=== PATIENT | female | born 1995 | race Caucasian/White ===

== ENCOUNTER 2017-02-27 19:12 | Emergency (ER) | payer BC, OTHER ==
[~2017-02-27] VITALS: Ht 157.5 cm; Wt 47.6 kg
[2017-02-27] MEDS ORDERED: NAPR500T4 (19:29)
[2017-02-27] MEDS ORDERED: NORG1TAB14 (19:29)
--- NOTE | 2017-02-27 19:53 | ED Lower Extremity ---
General Chief Complaint: Lower Extremity Stated Complaint: LEFT FOOT INJ Nursing Triage Note: Carried into ER by male slate picker. Reports doing cheerleading stunts at [place], [place] when her foot was rolled during a stunt. Pt states injured at 1745. Source: patient, family Exam Limitations: no limitations History of Present Illness Time seen by provider: 19:53 Initial Comments 21-year-old female patient presents to the emergency department with complaints of left foot/ankle pain after doing a cheerleading stunt. Reports taking 4 ibuprofen one hour prior to arrival. Patient denies hitting her head or loss of consciousness. Denies neck or back pain. Onset: this afternoon Pain/Injury Location: left foot, left ankle Method of Injury: sports injury, twisted Modifying Factors: Worse With Movement Allergies and Home Medications Allergies Coded Allergies: No Known Drug Allergies (Unverified , 02/27/17) Home Medications Naproxen 500 Mg Tablet, #42 (Reported) Norgestimate-Ethinyl Estradiol 1 Each Tablet, #84 (Reported) Constitutional: no symptoms reported Respiratory: no symptoms reported Cardiovascular: no symptoms reported Musculoskeletal: see HPI, joint pain, No joint swelling Skin: No change in color, No lumps Psychiatric/Neurological: Denies Headache, Denies Numbness, Denies Paresthesia , Denies Tingling, Denies Weakness All Other Systems Reviewed Negative Unless Noted: Yes (Negative excepted noted.) Past Kfrkuog-Shlzbw-Tyjanv Hx Patient Social History Alcohol Use: Denies Use Recreational Drug Use: No Smoking Status: Never a Smoker Recent Foreign Travel: No Contact w/Someone Who Travel: No Recent Infectious Disease Expo: No Recent Hopitalizations: No Seasonal Allergies Seasonal Allergies: No Surgeries HX Surgeries: Yes Respiratory Hx Respiratory Disorders: No Cardiovascular Hx Cardiac Disorders: No Neurological Hx Neurological Disorders: No Gastrointestinal Hx Gastrointestinal Disorders: No Musculoskeletal Hx Musculoskeletal Disorders: No Reviewed Nursing Assessment Reviewed/Agree w Nursing PMH: Yes Family Medical History Significant Family History: No Pertinent Family Hx Physical Exam Vital Signs Vital Sign - Last 12Hours 02/27/17 02/27/17 19:15 21:00 Temp 97.2 Pulse 86 Resp 20 B/P (MAP) 117/84 Pulse Ox 97 O2 Delivery Room Air Capillary Refill : General Appearance: WD/WN, no apparent distress Cardiovascular: normal peripheral pulses, regular rate, rhythm, no murmur Respiratory: lungs clear, normal breath sounds, no respiratory distress Legs: bilateral leg non-tender, bilateral leg normal inspection, bilateral leg normal range of motion, bilateral leg no evidence of injury Knees: bilateral knee non-tender, bilateral knee normal inspection, bilateral knee normal range of motion, bilateral knee no evidence of injury Ankles: right ankle non-tender, bilateral ankle normal inspection, right ankle normal range of motion, bilateral ankle no evidence of injury, left ankle bone tenderness (bilateral malleoli), left ankle limited range of motion, left ankle pain, left ankle soft tissue tenderness Feet: right foot non-tender, bilateral foot normal inspection, right foot normal range of motion, bilateral foot no evidence of injury, left foot bone tenderness (generalized foot), left foot limited range of motion, left foot pain , left foot soft tissue tenderness (generalized tenderness) Neurologic/Tendon: normal sensation, normal motor functions, normal tendon functions, responds to pain, no evidence tendon injury Neurologic/Psychiatric: no motor/sensory deficits, alert, normal mood/affect, oriented x 3 Skin: normal color, warm/dry, No ecchymosis (no evidence of trauma), tattoos/ piercings Progress/Results/Core Measures Results/Orders My Orders Orders - BIJU SIEGEL Foot, Left, 3 Views (02/27/17 19:28) Ankle, Left, 3 Views (02/27/17 19:28) Hydrocodone/Apap 5/325 Tablet (Lortab 5 (02/27/17 20:21) Vital Signs/I&O Vital Sign - Last 12Hours 02/27/17 02/27/17 19:15 21:00 Temp 97.2 97.2 Pulse 86 82 Resp 20 20 B/P (MAP) 117/84 Pulse Ox 97 O2 Delivery Room Air Room Air Diagnostic Imaging Diagonstic Imaging: Xray Plain Films/CT/US/NM/MRI: ankle Comments FINDINGS: No acute fracture or dislocation. No destructive osseous process. The talar dome is unremarkable. Ankle mortise is symmetric. No suspicious radiopaque foreign body. IMPRESSION: No acute osseous abnormality. Dictated by: Dictated on workstation # [id number] Reviewed: Reviewed by Me (radiology report reviewed by me) Diagonstic Imaging: Xray Plain Films/CT/US/NM/MRI: other (foot) Comments FINDINGS: No acute fracture or dislocation. No destructive osseous process. Joint spaces are well maintained. Lisfranc joint is well aligned. Minimal osteophyte formation at the talonavicular joint. IMPRESSION: No acute osseous abnormality. Dictated by: Dictated on workstation # [id number] Reviewed: Reviewed by Me (radiology report reviewed by me) Departure Communication Progress Notes Diagnostic findings discussed with the patient. 3 inch Jean Carlos wrap applied to the left ankle/foot. Patient states she does have crutches at home to use if needed. Proceed with discharge. Impression Impression: Primary Impression: Foot sprain Qualified Codes: S93.602A - Unspecified sprain of left foot, initial encounter Additional Impression: Ankle sprain Qualified Codes: S93.402A - Sprain of unspecified ligament of left ankle, initial encounter Disposition: HOME, SELF-CARE Condition: Improved Departure-Patient Inst. Decision time for Depature: 20:51 Referrals: NO,LOCAL PHYSICIAN (PCP) Primary Care Physician Patient Instructions: Ankle Sprain (DC) Add. Discharge Instructions: All discharge instructions reviewed with patient and/or family. Voiced understanding. Tylenol extra strength [id number] as directed for pain. Ibuprofen 800 mg by mouth every 8 hours as needed for pain. Elevate the left lower extremity on pillows, ice pack for 20 minute intervals as needed for pain. Jean Carlos wrap as instructed. Avoid high impact activities 7 days, then increase activity as tolerated. Follow-up with your family practitioner if no improvement in symptoms in 7-10 days. Return to the emergency department for worsened symptoms or any other concerns. BIJU SIEGEL Feb 27, 2017 19:53
[2017-02-27] MEDS ORDERED: HYDROcodone/APAP 5 MG/325 MG (LORTAB) TAB PO STA (20:21)
--- NOTE | 2017-02-27 20:25 | Diagnostic Imaging Report ---
INDICATION: Pain COMPARISON: Radiographs of the foot from the same date. TECHNIQUE: 3 radiographs of the left ankle dated February 27, 2017 FINDINGS: No acute fracture or dislocation. No destructive osseous process. The talar dome is unremarkable. Ankle mortise is symmetric. No suspicious radiopaque foreign body. IMPRESSION: No acute osseous abnormality. Dictated by: Dictated on workstation # [id number]
--- NOTE | 2017-02-27 20:42 | Diagnostic Imaging Report ---
INDICATION: Pain. COMPARISON: Radiographs of the left ankle from the same day. TECHNIQUE: Three radiographs of the left foot dated February 27, 2017. FINDINGS: No acute fracture or dislocation. No destructive osseous process. Joint spaces are well maintained. Lisfranc joint is well aligned. Minimal osteophyte formation at the talonavicular joint. IMPRESSION: No acute osseous abnormality. Dictated by: Dictated on workstation # [id number]
--- OUTSIDE RECORDS SUMMARY | 2017-03-02 10:14 | XMS REPORT ---
Author Author Ruth Ash [facility] Address [address] [place], [place] [id number] Care Team Providers Care Library Clerical Assistant Name Role Phone Ruth Ash PCP Unavailable Donte Dillard V PreferredProvider Unavailable Allergies and Adverse Reactions Name Reaction Notes PENICILLINS hives Plan of Treatment Planned Activity Comments Planned Date Planned Time Plan/Goal Urinalysis Routine C&S If Indicated 09/19/2015 12:00 AM Medications Active Name Start Date Estimated Completion Date SIG Comments Loestrin Fe 09/11 (28-Day) 1 mg-20 mcg (21)/75 mg (7) oral tablet 06/26/2016 take 1 tablet by oral route once daily for 28 days Vivlodex 10 mg oral capsule 06/30/2016 07/10/2016 take 1 capsule (10 mg) by oral route once daily during day 10 through day 20 of cycle. Name Start Date Expiration Date SIG Comments azithromycin 250 mg oral tablet 12/11/2009 12/16/2009 2 stat x 1 d then 1 q d x 4 d Lo Loestrin Fe 1 mg-10 mcg (24)/10 mcg (2) oral tablet 11/29/2015 12/27/2015 take 1 tablet by oral route once daily for 28 days Provera 10 mg oral tablet 02/20/2016 02/25/2016 take 1 tablet (10 mg) by oral route once daily for 5 days clindamycin HCl 300 mg oral capsule 05/26/2016 06/05/2016 take 1 capsule ( 300 mg) by oral route every 8 hours Discontinued Name Start Date Discontinued Date SIG Comments Sprintec (28) 0.25-35 mg-mcg oral tablet 09/11/2011 01/01/2012 take 1 tablet by oral route once daily for 28 days Completion of Therapy Natazia 3 mg/2 mg-2 mg/ 2 mg-3 mg/1 mg oral tablet 12/17/2011 03/29/2012 take 1 tablet by oral route once daily for 28 days Too expensive Levlen (28) 0.15-0.03 mg oral tablet 03/29/2012 10/13/2012 take 1 tablet by oral route once daily for 28 days heavy periods with bad cramping Microgestin FE 09/11 (28) 1 mg-20 mcg (21)/75 mg (7) oral tablet 10/13/2012 take 1 tablet by oral route once daily for 28 days Ortho-Novum 35 (28) 1-35 mg-mcg oral tablet 05/15/2013 11/01/2013 take 1 tablet by oral route for 21 consecutive days, followed by 7 days off for 28 days Depo-Provera 150 mg/mL intramuscular suspension 07/29/2015 01/13/2016 inject 150 mg by intramuscular route every 3 months for 1 day Depo-Provera 150 mg/mL intramuscular suspension 07/29/2015 01/13/2016 inject 150 mg by intramuscular route every 3 months for 1 day change to Ortho Evra Xulane 150-35 mcg/24 hr transdermal patch weekly 01/13/2016 02/20/2016 apply 1 patch by transdermal route once weekly for 3 weeks Minastrin 24 Fe 1 mg-20 mcg(24) /75 mg (4) oral tablet,chewable 05/26/201605/26/2016 chew 1 tablet by oral route once daily for 28 days Minastrin 24 Fe 1 mg-20 mcg(24) /75 mg (4) oral tablet,chewable 05/26/201605/26/2016 chew 1 tablet by oral route once daily for 28 days change to nonchewable Problem List Description Status Onset Dysmenorrhea Active 12/17/2011 Menorrhagia Active 12/17/2011 Contraception, Surveillance Active 05/15/2013 Mittelschmerz Active 06/01/2013 Pelvic Pain - Left Active 06/08/2013 Vital Signs Date Time BP-Sys(mm[Hg] BP-Katya(mm[Hg]) HR(bpm) RR(rpm) Temp WT HT HC BMI BSA BMI Percentile O2 Sat(%) 06/30/2016 8:51:00 AM 99 mmHg 55 mmHg 80 bpm 97 F 104 lbs 61.5 in 19.33 kg/m2 1.43 m2 21.3 % 05/26/2016 10:14:00 AM 114 mmHg 56 mmHg 65 bpm 98.1 F 106 lbs 61.5 in 19.704 kg/m 1.4444 m 26.6 % 03/10/2016 8:57:00 AM 123 mmHg 61 mmHg 64 bpm 97.9 F 105 lbs 61.5 in 19.52 kg/m2 1.44 m2 24.8 % 02/20/2016 9:11:00 AM 106 mmHg 67 mmHg 73 bpm 99.2 F 103 lbs 61.5 in 19.1463 kg/m 1.4238 m 20 % 01/13/2016 11:26:00 AM 106 mmHg 61 mmHg 79 bpm 98.9 F 99 lbs 61.5 in 18.40 kg/m2 1.40 m2 11.5 % 11/29/2015 9:11:00 AM 109 mmHg 67 mmHg 70 bpm 98.6 F 102 lbs 61.5 in 18.9604 kg/m 1.4169 m 18.5 % 10/16/2015 2:55:00 PM 106 mmHg 62 mmHg 70 bpm 99 F 107 lbs 61.5 in 19.89 kg/m2 1.45 m2 31.6 % 09/19/2015 8:14:00 AM 108 mmHg 70 mmHg 67 bpm 16 rpm 97.5 F 104 lbs 61.5 in 19.3322 kg/m 1.4307 m 24.2 % 100 % 07/29/2015 3:23:00 PM 109 mmHg 60 mmHg 67 bpm 99.1 F 108 lbs 61.5 in 20.08 kg/m2 1.46 m2 35.3 % 05/06/2015 3:50:00 PM 108 mmHg 71 mmHg 67 bpm 97.8 F 107 lbs 02/11/2015 9:55:00 AM 105 mmHg 63 mmHg 76 bpm 98.2 F 106 lbs 61.5 in 19.70 kg/m2 1.44 m2 32.4 % 11/22/2014 2:34:00 PM 116 mmHg 75 mmHg 76 bpm 99.7 F 105 lbs 61.5 in 19.5181 kg/m 1.4376 m 30.9 % 09/06/2014 3:34:00 PM 131 mmHg 69 mmHg 102 bpm 97.6 F 98 lbs 61.5 in 18.22 kg/m2 1.39 m2 14.8 % 06/21/2014 3:13:00 PM 112 mmHg 71 mmHg 81 bpm 98.8 F 101 lbs 61.5 in 18.7745 kg/m 1.4099 m 23 % 04/05/2014 1:37:00 PM 120 mmHg 70 mmHg 68 bpm 98.7 F 102 lbs 61.5 in 18.96 kg/m2 1.42 m2 26.9 % 01/18/2014 1:53:00 PM 110 mmHg 65 mmHg 76 bpm 98.4 F 102 lbs 61.5 in 18.9604 kg/m 1.4169 m 28.2 % 11/01/2013 8:47:00 AM 112 mmHg 65 mmHg 74 bpm 97.6 F 106 lbs 61.5 in 19.70 kg/m2 1.44 m2 40.3 % 10/20/2013 9:50:00 AM 113 mmHg 66 mmHg 78 bpm 98.1 F 106 lbs 61.5 in 19.704 kg/m 1.4444 m 40.6 % 06/08/2013 4:07:00 PM 113 mmHg 71 mmHg 71 bpm 97.8 F 102 lbs 61.5 in 18.96 kg/m2 1.42 m2 32.5 % 06/01/2013 3:07:00 PM 122 mmHg 63 mmHg 88 bpm 97.8 F 105 lbs 61.5 in 19.5181 kg/m 1.4376 m 40.7 % 05/15/2013 4:08:00 PM 114 mmHg 65 mmHg 74 bpm 98.4 F 105 lbs 61.5 in 19.52 kg/m2 1.44 m2 41 % 03/02/2012 9:04:00 AM 96 mmHg 63 mmHg 70 bpm 97 F 96.5 lbs 61.5 in 17.9381 kg/m 1.3782 m 27.4 % 12/17/2011 8:48:00 AM 116 mmHg 68 mmHg 83 bpm 97.8 F 103.375 lbs 61.5 in 19.22 kg/m2 1.43 m2 47.8 % 09/11/2011 3:10:00 PM 114 mmHg 65 mmHg 76 bpm 99.4 F 99.25 lbs 61.5 in 18.4492 kg/m 1.3977 m 39 % 12/11/2009 11:00:00 AM 80 bpm 20 rpm 97.8 F 88.437 lbs Social History Name Description Comments Tobacco Never smoker Alcohol Never History of Procedures Date Ordered Description Order Status 07/29/2015 3:40 PM THER/PROPH/DIAG INJ SC/IM Reviewed 07/29/2015 12:00 AM SPECIMEN HANDLING OFFICE-LAB Reviewed 07/29/2015 12:00 AM CHLAMYDIA CULTURE Returned 07/29/2015 12:00 AM N.GONORRHOEAE DNA AMP PROB Returned 09/19/2015 12:00 AM COMPLETE CBC W/AUTO DIFF WBC Returned 09/19/2015 12:00 AM COMPREHEN METABOLIC PANEL Returned 09/19/2015 12:00 AM LIPID PANEL Returned 09/19/2015 12:00 AM VARICELLA-ZOSTER ANTIBODY Returned 09/19/2015 12:00 AM MMR Titer Panel Returned 10/16/2015 12:00 AM THER/PROPH/DIAG INJ SC/IM Reviewed 11/29/2015 12:00 AM CULTURE SCREEN ONLY Returned 11/29/2015 12:00 AM CHYLMD TRACH DNA DIR PROBE Returned 03/10/2016 9:58 AM URINE TEST Reviewed 06/24/2016 12:00 AM URINALYSIS AUTO W/SCOPE Returned 01/28/2012 12:00 AM US EXAM PELVIC COMPLETE Returned 06/13/2013 12:00 AM US EXAM PELVIC COMPLETE Returned 06/08/2013 12:00 AM URINALYSIS AUTO W/SCOPE Returned 06/09/2013 12:00 AM URINE TEST Reviewed 11/01/2013 12:00 AM URINE TEST Reviewed 11/01/2013 10:47 AM THER/PROPH/DIAG INJ SC/IM Reviewed 11/01/2013 10:47 AM Depo-Provera 150 Mg Reviewed 01/18/2014 2:04 PM THER/PROPH/DIAG INJ SC/IM Reviewed 01/18/2014 2:04 PM Depo-Provera 150 Mg Reviewed 04/05/2014 12:00 AM THER/PROPH/DIAG INJ SC/IM Reviewed 06/21/2014 3:35 PM THER/PROPH/DIAG INJ SC/IM Reviewed 09/06/2014 3:45 PM THER/PROPH/DIAG INJ SC/IM Reviewed 09/06/2014 12:00 AM CHLAMYDIA CULTURE Returned 09/06/2014 12:00 AM N.GONORRHOEAE DNA AMP PROB Returned 11/22/2014 2:56 PM URINE TEST Reviewed 11/22/2014 12:00 AM THER/PROPH/DIAG INJ SC/IM Reviewed 02/11/2015 12:00 AM THER/PROPH/DIAG INJ SC/IM Reviewed Results Summary Data and Description Results 06/08/2013 1:54 PM COLOR YELLOW APPEARANCE CLEAR SPEC GRAV >=1.030 pH 6.0 PROTEIN NEGATIVE GLUCOSE NEGATIVE KETONE NEGATIVE BILIRUBIN NEGATIVE BLOOD NEGATIVE NITRITE NEGATIVE LEUK SCREEN NEGATIVE WBC/HPF 0-5 RBC/HPF NEGATIVE CASTS/LPF NEGATIVE CRYSTALS NEGATIVE MUCOUS THRDS 2++ BACTERIA FEW EPITH CELLS FEW SQUAMOUS TRICHOMONAS NEGATIVE YEAST NEGATIVE CULT SET UP? NO 11/22/2014 2:56 PM HCG Ur Ql Negative 09/19/2015 8:50 AM WBC 5.0 RBC 4.48 HGB 13.80 g/dLHCT 40.90 %MCV 91.0 fLMCH 30.80 pgMCHC 33.70 g/dLRDW SD 42 RDW CV 12.70 %MPV 10.60 fLPLT 214 NRBC# 0.00 NRBC% 0.0 GLUCOSE 85.0 mg/dLSODIUM 141.0 mmol/LPOTASSIUM 3.80 mmol/LCHLORIDE 108.0 mmol/LCO2 20.0 mmol/LBUN 14.0 mg/dLCREATININE 1.0 mg/dLSGOT/AST 20.0 IU/ LSGPT/ALT 11.0 IU/LALK PHOS 72.0 IU/LTOTAL PROTEIN 7.60 g/dLALBUMIN 5.10 g/ dLTOTAL BILI 0.60 mg/dLCALCIUM 10.0 mg/dLAGE 19 GFR NonAA N/A eGFR N/A mL/min/ 1.73meGFR AA* N/A TRIGLYCERIDES 52.0 mg/dLCHOLESTEROL 129.0 mg/dLHDL 46.0 mg/ dLTOT CHOL/HDL 2.8 LDL (CALC) 73.0 mg/dLVaricella Zoster IgG 1066.0 IndexRubella Antibodies, IgG 5.33 IndexRubeola Ab, IgG 48.5 AU/mlMumps Abs, IgG 267.0 AU/ml 09/19/2015 11:47 AM COLOR YELLOW APPEARANCE CLEAR SPEC GRAV 1.015 pH 6.5 PROTEIN NEGATIVE GLUCOSE NEGATIVE mg/dLKETONE 15 BILIRUBIN NEGATIVE BLOOD SMALL NITRITE NEGATIVE LEUK SCREEN TRACE MICRO IND? SEE BELOW WBC/HPF 0-5 RBC/HPF RARE CASTS/LPF NEGATIVE /LPFCRYSTALS TRACE CA OX MUCOUS THRDS 2++ BACTERIA FEW EPITH CELLS FEW RENAL /HPFTRICHOMONAS NEGATIVE YEAST NEGATIVE 03/10/2016 9:58 AM Test, Urine negative 06/24/2016 3:15 PM COLOR YELLOW APPEARANCE CLEAR SPEC GRAV >=1.030 pH 6.0 PROTEIN NEGATIVE GLUCOSE NEGATIVE mg/dLKETONE NEGATIVE BILIRUBIN NEGATIVE BLOOD TRACE-INTACT NITRITE NEGATIVE LEUK SCREEN NEGATIVE MICRO INDICATED? SEE BELOW WBC/HPF NEGATIVE RBC/HPF NEGATIVE CASTS/LPF NEGATIVE /LPFCRYSTALS NEGATIVE MUCOUS THRDS NEGATIVE BACTERIA NEGATIVE EPITH CELLS FEW SQUAMOUS / HPFTRICHOMONAS NEGATIVE YEAST NEGATIVE CULT SET UP? NO History Of Immunizations Not available. History of Past Illness Name Date of Onset Comments Upper Respiratory Infection Dec 11 2009 11:02AM Pharyngitis, Acute Dec 11 2009 11:02AM Dysmenorrhea 12/17/2011 Menorrhagia 12/17/2011 Contraception, Surveillance 05/15/2013 Gill 06/01/2013 Pelvic Pain - Left 06/08/2013 Routine gynecological examination Sep 11 2011 3:11PM Dysmenorrhea Sep 11 2011 3:11PM Menorrhagia Dec 17 2011 8:51AM Dysmenorrhea Dec 17 2011 8:51AM Menorrhagia Jan 28 2012 2:20PM Dysmenorrhea Mar 02 2012 9:07AM Irregular Menses Mar 02 2012 9:07AM Contraception, Surveillance May 15 2013 4:11PM Pelvic Pain Jun 01 2013 3:10PM Ibantelschstanton Jun 01 2013 3:10PM Pelvic Pain Jun 08 2013 4:41PM Dysuria Jun 08 2013 4:50PM Dysmenorrhea Jun 08 2013 4:09PM Pelvic Pain - Left Jun 08 2013 4:09PM Contraceptive Management Oct 20 2013 9:53AM Contraceptive counseling (Depo-Provera) Nov 01 2013 10:47AM Contraceptive counseling (Depo-Provera) Jan 18 2014 2:04PM Contraceptive counseling (Depo-Provera) Apr 05 2014 1:51PM Contraceptive counseling (Depo-Provera) Jun 21 2014 3:34PM Contraceptive counseling (Depo-Provera) Sep 06 2014 3:45PM Contraception, Surveillance Sep 06 2014 3:39PM Contraceptive counseling (Depo-Provera) Nov 22 2014 2:55PM Contraceptive counseling (Depo-Provera) Feb 11 2015 11:53AM Contraceptive counseling (Depo-Provera) May 06 2015 3:58PM Contraceptive counseling (Depo-Provera) Jul 29 2015 3:40PM Routine gynecological examination Jul 29 2015 3:28PM Contraception, Surveillance Jul 29 2015 3:28PM Pre-employment drug testing, encounter for Sep 19 2015 8:16AM Contraceptive counseling (Depo-Provera) Oct 16 2015 3:23PM Non-specific vaginitis Nov 29 2015 9:14AM Dysmenorrhea Nov 29 2015 9:14AM Contraceptive Management Jan 13 2016 11:31AM Menorrhagia Feb 20 2016 9:15AM Metrorrhagia Feb 20 2016 9:15AM Excessive Or Frequent Menstruation Feb 20 2016 9:15AM Contraceptive Management Mar 10 2016 9:03AM Irregular Menses May 26 2016 10:17AM Sore throat May 26 2016 10:17AM Dysuria Jun 24 2016 9:39AM Mittelschmerz Jun 30 2016 8:54AM Payers Insurance Name Company Name Plan Name Plan Number Policy Number Policy Group Number Start Date [employer] [facility] [id number] N/A [facility] [id number] N/[id number] N/A History of Encounters Visit Date Visit Type Provider 06/30/2016 Office visit Ruth Ash DEPORTATION EXAMINER 05/26/2016 Office visit Ruth Ash DEPORTATION EXAMINER 03/10/2016 Office visit Ruth Ash DEPORTATION EXAMINER 02/20/2016 Office visit Ruth Ash DEPORTATION EXAMINER 01/13/2016 Office visit Ruth Ash DEPORTATION EXAMINER 11/29/2015 Office visit Ruth Ash DEPORTATION EXAMINER 10/16/2015 Nurse visit Ruth Ash DEPORTATION EXAMINER 09/19/2015 Office visit Calos Ontiveros DEPORTATION EXAMINER 07/29/2015 Office visit Ruth Ash DEPORTATION EXAMINER 05/06/2015 Nurse visit Ruth Ash DEPORTATION EXAMINER 02/11/2015 Nurse visit Ruth Ash DEPORTATION EXAMINER 11/22/2014 Nurse visit Ruth Ash DEPORTATION EXAMINER 09/06/2014 Nurse visit Ruth Ash DEPORTATION EXAMINER 06/21/2014 Nurse visit Ruth Ash DEPORTATION EXAMINER 04/05/2014 Nurse visit Ruth Ash DEPORTATION EXAMINER 01/18/2014 Nurse visit Ruth Ash DEPORTATION EXAMINER 11/01/2013 Nurse visit Ruth Ash DEPORTATION EXAMINER 10/20/2013 Office visit Ruth Ash DEPORTATION EXAMINER 06/08/2013 Office visit Ruth Ash DEPORTATION EXAMINER 06/01/2013 Office visit Ruth Ash DEPORTATION EXAMINER 05/15/2013 Office visit Ruth Ash DEPORTATION EXAMINER 03/02/2012 Office visit Louise Cage MD 12/17/2011 Office visit Louise Cage MD 09/11/2011 Office visit Louise Cage MD 12/11/2009 Office visit Donte Dillard DO 06/19/2009 Laboratory Amie OSULLIVAN 06/06/2009 Office visit Amie OSULLIVAN
--- OUTSIDE RECORDS SUMMARY | 2017-03-02 10:15 | XMS REPORT ---
Author Author Ruth Ash [facility] Address [address] [place], [place] [id number] Care Team Providers Care Financial Operations Analyst Name Role Phone Ruth Ash PCP Unavailable Donte Dillard V PreferredProvider Unavailable Allergies and Adverse Reactions Name Reaction Notes PENICILLINS hives Plan of Treatment Planned Activity Comments Planned Date Planned Time Plan/Goal Urinalysis Routine C&S If Indicated 09/19/2015 12:00 AM Injection, Subcutaneous/IM 08/20/2016 12:00 AM Medications Name Start Date Expiration Date SIG Comments [...] mg) by oral route every 8 hours Vivlodex 10 mg oral capsule 06/30/2016 07/10/2016 take 1 capsule (10 mg) by oral route once daily during day 10 through day 20 of cycle. Depo-Provera 150 mg/mL intramuscular suspension 08/13/2016 08/16/2016 inject 150 mg by intramuscular route every 3 months for 1 day Discontinued Name Start Date Discontinued Date SIG [...] heavy periods with bad cramping Microgestin FE /20 (28) 1 mg-20 mcg (21)/75 mg (7) oral tablet 10/13/2012 take 1 tablet by oral route once daily for 28 days Ortho-Novum 1/35 (28) 1-35 mg-mcg oral tablet 05/15/2013 11/01/2013 [...] daily for 28 days change to nonchewable Loestrin Fe /20 (28-Day) 1 mg-20 mcg (21)/75 mg (7) oral tablet 06/26/2016 take 1 tablet by oral route once daily for 28 days switched back to Depo Provera Problem List Description Status Onset Dysmenorrhea Active 12/17/2011 Menorrhagia Active 12/17/2011 Contraception, Surveillance Active 05/15/2013 Mittelschmerz Active 06/01/2013 Pelvic Pain - Left Active 06/08/2013 Vital Signs Date Time BP-Sys(mm[Hg] BP-Katya(mm[Hg]) HR(bpm) RR(rpm) Temp WT HT HC BMI BSA BMI Percentile O2 Sat(%) 08/20/2016 1:44:00 PM 109 mmHg 55 mmHg 85 bpm 98.5 F 103 lbs 61.5 in 19.15 kg/m2 1.42 m2 18.5 % 07/28/2016 3:04:00 PM 116 mmHg 67 mmHg 87 bpm 97.9 F 103 lbs 61.5 in 19.1463 kg/m 1.4238 m 18.7 % 06/30/2016 8:51:00 AM 99 mmHg 55 mmHg [...] OFFICE-LAB Reviewed 07/29/2015 12:00 AM CHLAMYDIA CULTURE Reviewed 07/29/2015 12:00 AM N.GONORRHOEAE DNA AMP PROB Reviewed 09/19/2015 12:00 AM COMPLETE CBC W/AUTO DIFF WBC Reviewed 09/19/2015 12:00 AM COMPREHEN METABOLIC PANEL Reviewed 09/19/2015 12:00 AM LIPID PANEL Reviewed 09/19/2015 12:00 AM VARICELLA-ZOSTER ANTIBODY Reviewed 09/19/2015 12:00 AM MMR Titer Panel Reviewed 10/16/2015 12:00 AM THER/PROPH/DIAG INJ SC/IM Reviewed 11/29/2015 12:00 AM CULTURE SCREEN ONLY Returned 11/29/2015 12:00 AM CHYLMD TRACH DNA DIR PROBE Returned 03/10/2016 9:58 AM URINE TEST Reviewed 06/24/2016 12:00 AM URINALYSIS AUTO W/SCOPE Returned 08/20/2016 2:28 PM URINE TEST Reviewed 01/28/2012 12:00 AM US EXAM PELVIC COMPLETE Reviewed 06/13/2013 12:00 AM US EXAM PELVIC COMPLETE Reviewed 06/08/2013 12:00 AM URINALYSIS AUTO W/SCOPE Reviewed 06/09/2013 12:00 AM URINE TEST Reviewed 11/01/2013 [...] SC/IM Reviewed 09/06/2014 12:00 AM CHLAMYDIA CULTURE Reviewed 09/06/2014 12:00 AM N.GONORRHOEAE DNA AMP PROB Reviewed 11/22/2014 2:56 PM URINE TEST Reviewed 11/22/2014 [...] NEGATIVE YEAST NEGATIVE CULT SET UP? NO 08/20/2016 2:28 PM Test, Urine Negative History Of Immunizations Not available. History of Past Illness Name Date of Onset Comments Upper Respiratory Infection Dec 11 2009 11:02AM Pharyngitis, Acute Dec 11 2009 11:02AM Dysmenorrhea 12/17/2011 Menorrhagia 12/17/2011 [facility]raception, [facility]2013 [facility] Pelvic Pain - Left 06/08/2013 Routine gynecological examination Sep 11 2011 3:11PM Dysmenorrhea Sep 11 2011 3:11PM Menorrhagia Dec 17 2011 8:51AM Dysmenorrhea Dec 17 2011 8:51AM Menorrhagia Jan 28 2012 2:20PM Dysmenorrhea Mar 02 2012 9:07AM Irregular Menses Mar 02 2012 9:07AM Contraception, Surveillance May 15 2013 4:11PM Pelvic Pain Jun 01 2013 3:10PM Mittelschmerz Jun 01 2013 3:10PM Pelvic Pain Jun [...] 2016 9:39AM Mittelschmerz Jun 30 2016 8:54AM Contraceptive counseling (Depo-Provera) Aug 20 2016 2:28PM Irregular Menses Jul 28 2016 3:06PM Payers Insurance Name Company Name Plan Name Plan Number Policy Number Policy Group Number Start Date [facility] [id number] N/A [facility] Med Occupational Medicine [id number] N/A [facility] [id number] N/A History of Encounters Visit Date Visit Type Provider 08/20/2016 Office visit Ruth Ash LEGAL PROCESS SPECIALIST 07/28/2016 Office visit Ruth Ash LEGAL PROCESS SPECIALIST 06/30/2016 Office visit Ruth Ash LEGAL PROCESS SPECIALIST 05/26/2016 Office visit Ruth Ash LEGAL PROCESS SPECIALIST 03/10/2016 Office visit Ruth Ash LEGAL PROCESS SPECIALIST 02/20/2016 Office visit Ruth Rodríguez Ash LEGAL PROCESS SPECIALIST 01/13/2016 Office visit Ruth Rodríguez Mihir LEGAL PROCESS SPECIALIST 11/29/2015 Office visit Ruth Rodríguez Mihir LEGAL PROCESS SPECIALIST 10/16/2015 Nurse visit Ruth Rodríguez Ash LEGAL PROCESS SPECIALIST 09/19/2015 Office visit Calos Ontiveros LEGAL PROCESS SPECIALIST 07/29/2015 Office visit Ruth Rodríguez Mihir LEGAL PROCESS SPECIALIST 05/06/2015 Nurse visit Ruth Rodríguez Mihir LEGAL PROCESS SPECIALIST 02/11/2015 Nurse visit Ruth Rodríguez Mihir LEGAL PROCESS SPECIALIST 11/22/2014 Nurse visit Ruth Rodríguez Mihir LEGAL PROCESS SPECIALIST 09/06/2014 Nurse visit Ruth Rodríguez Mihir LEGAL PROCESS SPECIALIST 06/21/2014 Nurse visit Ruth Rodríguez Mihir LEGAL PROCESS SPECIALIST 04/05/2014 Nurse visit Ruth Rodríguez Mihir LEGAL PROCESS SPECIALIST 01/18/2014 Nurse visit Ruth Rodríguez Mihir LEGAL PROCESS SPECIALIST 11/01/2013 Nurse visit Ruth Rodríguez Mihir LEGAL PROCESS SPECIALIST 10/20/2013 Office visit Ruth BravoPaula Mihir LEGAL PROCESS SPECIALIST 06/08/2013 Office visit Ruth Anne Ash LEGAL PROCESS SPECIALIST 06/01/2013 Office visit Ruth Rodríguez Mihir LEGAL PROCESS SPECIALIST 05/15/2013 Office visit Ruth M. Mihir LEGAL PROCESS SPECIALIST 03/02/2012 Office visit Louise Cage MD 12/17/2011 Office visit Louise Cage MD 09/11/2011 Office visit Louise Cage MD 12/11/2009 Office visit Donte Dillard DO 06/19/2009 Laboratory Amie OSULLIVAN 06/06/2009 Office visit Amie OSULLIVAN
--- OUTSIDE RECORDS SUMMARY | 2017-03-02 10:16 | XMS REPORT ---
Author Author Ruth Ash [facility] Address [address] [place], [place] [address] Care Team Providers Care Irrigation Pump Installer Name Role Phone Ruth Ash PCP Unavailable Allergies and Adverse Reactions Name Reaction Notes PENICILLINS hives Plan of Treatment Planned Activity Comments Planned Date Planned Time Plan/Goal THER/PROPH/DIAG INJ SC/IM 07/29/2015 3:40 PM Medications Name Start Date Expiration Date SIG Comments azithromycin 250 mg oral tablet 12/11/2009 12/16/2009 2 stat x 1 d then 1 q d x 4 d Depo-Provera 150 mg/mL intramuscular suspension 07/15/2015 07/16/2015 inject 150 mg by intramuscular route every [...] route once daily for 28 days Ortho-Novum (28) 1-35 mg-mcg oral tablet 05/15/2013 11/01/2013 take 1 tablet by oral route for 21 consecutive days, followed by 7 days off for 28 days Problem List Description Status Onset Dysmenorrhea Active 12/17/2011 Menorrhagia Active 12/17/2011 Contraception, Surveillance Active 05/15/2013 Gill Active 06/01/2013 Pelvic Pain - Left Active 06/08/2013 Vital Signs Date Time BP-Sys(mm[Hg] BP-Katya(mm[Hg]) HR(bpm) RR(rpm) Temp WT HT HC BMI BSA BMI Percentile O2 Sat(%) 07/29/2015 3:23:00 PM 109 mmHg 60 mmHg [...] bpm 97 F 96.5 lbs 61.5 in 17.94 kg/m2 1.3782 m 27.4 % 12/17/2011 8:48:00 AM 116 mmHg 68 mmHg 83 bpm 97.8 F 103.375 lbs 61.5 in 19.216 kg/m 1.43 m2 47.8 % 09/11/2011 3:10:00 PM 114 mmHg 65 mmHg 76 bpm 99.4 F 99.25 lbs 61.5 in 18.45 kg/m2 1.3977 m 39 % 12/11/2009 11:00:00 AM 80 bpm 20 rpm 97.8 F 88.437 lbs Social History Name Description Comments Tobacco Never smoker Alcohol Never History of Procedures Date Ordered Description Order Status 01/28/2012 12:00 AM US EXAM PELVIC COMPLETE [...] BLOOD NEGATIVE NITRITE NEGATIVE LEUK SCREEN NEGATIVE CASTS/LPF NEGATIVE CRYSTALS NEGATIVE MUCOUS THRDS 2++ BACTERIA FEW EPITH CELLS FEW SQUAMOUS TRICHOMONAS NEGATIVE YEAST NEGATIVE 11/22/2014 2:56 PM HCG Ur Ql Negative History Of Immunizations Not available. History of Past Illness Name Date of Onset Comments Upper Respiratory Infection Dec 11 2009 11:02AM Pharyngitis, Acute Dec 11 2009 11:02AM Dysmenorrhea 12/17/2011 Menorrhagia 12/17/2011 [facility]raception[facility] Pelvic Pain - Left 06/08/2013 Routine gynecological examination Sep 11 2011 3:11PM Dysmenorrhea Sep 11 2011 3:11PM Menorrhagia Dec 17 2011 8:51AM Dysmenorrhea Dec 17 2011 8:51AM Menorrhagia Jan 28 2012 2:20PM Dysmenorrhea Mar 02 2012 9:07AM Irregular Menses Mar 02 2012 9:07AM Contraception, Surveillance May 15 2013 4:11PM Pelvic Pain Jun 01 2013 3:10PM [facility] Jun 01 2013 3:10PM Pelvic Pain Jun [...] Contraceptive counseling (Depo-Provera) Jul 29 2015 3:40PM Payers Insurance Name Company Name Plan Name Plan Number Policy Number Policy Group Number Start Date [facility] [id number] N/A [facility] [id number] N/A History of Encounters Visit Date Visit Type Provider 07/29/2015 Office visit Ruth Ash FOOTBALL PAD REPAIRER 05/06/2015 Nurse visit Ruth Ash FOOTBALL PAD REPAIRER 02/11/2015 Nurse visit Ruth Ash FOOTBALL PAD REPAIRER 11/22/2014 Nurse visit Ruth Ash FOOTBALL PAD REPAIRER 09/06/2014 Nurse visit Ruth Ash FOOTBALL PAD REPAIRER 06/21/2014 Nurse visit Ruth Ash FOOTBALL PAD REPAIRER 04/05/2014 Nurse visit Ruth Ash FOOTBALL PAD REPAIRER 01/18/2014 Nurse visit Ruth Ash FOOTBALL PAD REPAIRER 11/01/2013 Nurse visit Ruth Ash FOOTBALL PAD REPAIRER 10/20/2013 Office visit Ruth Ash FOOTBALL PAD REPAIRER 06/08/2013 Office visit Ruth Ash FOOTBALL PAD REPAIRER 06/01/2013 Office visit Ruth Ash FOOTBALL PAD REPAIRER 05/15/2013 Office visit Ruth Ash FOOTBALL PAD REPAIRER 03/02/2012 Office visit Louise Cage MD 12/17/2011 Office visit Louise Cage MD 09/11/2011 Office visit Louise Cage MD 12/11/2009 Office visit Donte Dillard DO 06/19/2009 Laboratory Amie OSULLIVAN 06/06/2009 Office visit Amie OSULLIVAN
--- OUTSIDE RECORDS SUMMARY | 2017-03-02 10:16 | XMS REPORT ---
Author Author [facility] Organization [facility] Address [address] [place], [place] [id number] Care Team Providers Care Shop Helper Name Role Phone PCP Unavailable Allergies and Adverse Reactions Name Reaction Notes PENICILLINS hives Plan of Treatment Not available. Medications Name Start Date Expiration Date SIG Comments Azithromycin Oral Tablet 250 mg 12/11/2009 12/16/2009 2 stat x 1 d then 1 q d x 4 d Depo-Provera intramuscular suspension 150 mg/mL 09/06/2014 09/10/2014 inject 150 mg by intramuscular route every 3 months for 1 day Discontinued Name Start Date Discontinued Date SIG Comments Sprintec (28) Oral Tablet 0.25-35 mg-mcg 09/11/2011 01/01/2012 take 1 tablet by oral route once daily for 28 days Completion of Therapy Natazia Oral Tablet 3 mg/2 mg-2 mg/ 2 mg-3 mg/1 mg 12/17/2011 03/29/2012 take 1 tablet by oral route once daily for 28 days Too expensive Levlen (28) Oral Tablet 0.15-30 mg-mcg 03/29/2012 10/13/2012 take 1 tablet by oral route once daily for 28 days heavy periods with bad cramping Microgestin FE 09/11 (28) Oral tablet 1-20 mg-mcg 10/13/2012 04/21/2013 take 1 tablet by oral route once daily for 28 days Ortho-Novum (28) Oral tablet 1-35 mg-mcg 05/15/2013 11/01/2013 take 1 tablet by oral route for 21 consecutive days, followed by 7 days off for 28 days Problem List Description Status Onset Dysmenorrhea Active 12/17/2011 Menorrhagia Active 12/17/2011 Contraception, Surveillance Active 05/15/2013 Mittelschmerz Active 06/01/2013 Pelvic Pain - Left Active 06/08/2013 Vital Signs Date Time BP-Sys(mm[Hg] BP-Katya(mm[Hg]) HR(bpm) RR(rpm) Temp WT HT HC BMI BSA BMI Percentile O2 Sat(%) 02/11/2015 9:55:00 AM 105 mmHg 63 mmHg [...] Name Description Comments Tobacco Never smoker Alcohol History of Procedures Date Ordered Description Order Status 01/28/2012 12:00 AM US EXAM PELVIC COMPLETE Returned 06/13/2013 12:00 AM US EXAM PELVIC COMPLETE Returned 06/08/2013 12:00 AM URINALYSIS AUTO W/SCOPE Returned 06/09/2013 12:00 AM URINE TEST Reviewed 11/01/2013 12:00 AM URINE TEST Reviewed 11/01/2013 10:47 AM THER/PROPH/DIAG INJ SC/IM Reviewed 01/18/2014 2:04 PM THER/PROPH/DIAG INJ SC/IM Reviewed 04/05/2014 12:00 AM THER/PROPH/DIAG INJ SC/IM Reviewed 06/21/2014 3:35 PM THER/PROPH/DIAG INJ SC/IM Reviewed 09/06/2014 3:45 PM THER/PROPH/DIAG INJ SC/IM Reviewed 09/06/2014 12:00 AM CHLAMYDIA CULTURE Returned 09/06/2014 12:00 AM N.GONORRHOEAE DNA AMP PROB Returned 11/22/2014 2:56 PM URINE TEST Reviewed 11/22/2014 12:00 AM THER/PROPH/DIAG INJ SC/IM Reviewed Results [...] Contraceptive counseling (Depo-Provera) Feb 11 2015 11:53AM Payers Insurance Name Company Name Plan Name Plan Number Policy Number Policy Group Number Start Date [facility] [id number] N/A [facility] [id number] N/A History of Encounters Visit Date Visit Type Provider 02/11/2015 Nurse visit Ruth Ash CUTTER V GROOVE 11/22/2014 Nurse visit Ruth Ash CUTTER V GROOVE 09/06/2014 Nurse visit Ruth Ash CUTTER V GROOVE 06/21/2014 Nurse visit Ruth Ash CUTTER V GROOVE 04/05/2014 Nurse visit Ruth Ash CUTTER V GROOVE 01/18/2014 Nurse visit Ruth Ash CUTTER V GROOVE 11/01/2013 Nurse visit Ruth Ash CUTTER V GROOVE 10/20/2013 Office visit Ruth Ash CUTTER V GROOVE 06/08/2013 Office visit Ruth Ash CUTTER V GROOVE 06/01/2013 Office visit Ruth Ash CUTTER V GROOVE 05/15/2013 Office visit Ruth Ash CUTTER V GROOVE 03/02/2012 Office visit Louise Cage MD 12/17/2011 Office visit Louise Cage MD 09/11/2011 Office visit Louise Cage MD 12/11/2009 Office visit Donte Dillard DO 06/19/2009 Laboratory Amie OSULLIVAN 06/06/2009 Office visit Amie OSULLIVAN
--- OUTSIDE RECORDS SUMMARY | 2017-03-02 10:16 | XMS REPORT ---
Author Author MATTHEW ROSALES [facility] Address [address] [place], [place] [address] Care Team Providers Care Global Climate Change Researcher Name Role Phone MATTHEW ROSALES PCP Unavailable Donte Dillard V PreferredProvider Unavailable Allergies and Adverse Reactions Name Reaction Notes PENICILLINS hives Plan of Treatment Planned Activity Comments Planned Date Planned Time Plan/Goal Urinalysis Routine C&S If Indicated 09/19/2015 12:00 AM Medications Active Name Start Date Estimated Completion Date SIG Comments Tamiflu 75 mg oral capsule 09/25/2016 09/30/2016 take 1 capsule (75 mg) by oral route 2 times per day for 5 days Medrol (Kulwant) 4 mg oral tablets,dose pack 09/25/2016 09/30/2016 take as directed for 5 days Name Start Date Expiration Date SIG Comments [...] heavy periods with bad cramping Microgestin FE 20 (28) 1 mg-20 mcg (21)/75 mg (7) [...] HC BMI BSA BMI Percentile O2 Sat(%) 09/25/2016 6:23:00 PM 98 mmHg 58 mmHg 90 bpm 100.5 F 103 lbs 61.5 in 19.15 kg/m2 1.42 m2 18.3 % 96 % 08/20/2016 1:44:00 PM 109 mmHg 55 mmHg 85 bpm 98.5 F 103 lbs 61.5 in 19.1463 kg/m 1.4238 m 18.5 % 07/28/2016 3:04:00 PM 116 mmHg 67 mmHg 87 bpm 97.9 F 103 lbs 61.5 in 19.15 kg/m2 1.42 m2 18.7 % 06/30/2016 8:51:00 AM 99 mmHg 55 mmHg 80 bpm 97 F 104 lbs 61.5 in 19.3322 kg/m 1.4307 m 21.3 % 05/26/2016 10:14:00 AM 114 mmHg 56 mmHg 65 bpm 98.1 F 106 lbs 61.5 in 19.70 kg/m2 1.44 m2 26.6 % 03/10/2016 8:57:00 AM 123 mmHg 61 mmHg 64 bpm 97.9 F 105 lbs 61.5 in 19.5181 kg/m 1.4376 m 24.8 % 02/20/2016 9:11:00 AM 106 mmHg 67 mmHg 73 bpm 99.2 F 103 lbs 61.5 in 19.15 kg/m2 1.42 m2 20 % 01/13/2016 11:26:00 AM 106 mmHg 61 mmHg 79 bpm 98.9 F 99 lbs 61.5 in 18.4028 kg/m 1.3959 m 11.5 % 11/29/2015 9:11:00 AM 109 mmHg 67 mmHg 70 bpm 98.6 F 102 lbs 61.5 in 18.96 kg/m2 1.42 m2 18.5 % 10/16/2015 2:55:00 PM 106 mmHg 62 mmHg 70 bpm 99 F 107 lbs 61.5 in 19.8899 kg/m 1.4512 m 31.6 % 09/19/2015 8:14:00 AM 108 mmHg 70 mmHg 67 bpm 16 rpm 97.5 F 104 lbs 61.5 in 19.33 kg/m2 1.43 m2 24.2 % 100 % 07/29/2015 3:23:00 PM 109 mmHg 60 mmHg 67 bpm 99.1 F 108 lbs 61.5 in 20.0758 kg/m 1.458 m 35.3 % 05/06/2015 3:50:00 PM 108 mmHg 71 mmHg 67 bpm 97.8 F 107 lbs 02/11/2015 9:55:00 AM 105 mmHg 63 mmHg 76 bpm 98.2 F 106 lbs 61.5 in 19.704 kg/m 1.4444 m 32.4 % 11/22/2014 2:34:00 PM 116 mmHg 75 mmHg 76 bpm 99.7 F 105 lbs 61.5 in 19.52 kg/m2 1.44 m2 30.9 % 09/06/2014 3:34:00 PM 131 mmHg 69 mmHg 102 bpm 97.6 F 98 lbs 61.5 in 18.2169 kg/m 1.3888 m 14.8 % 06/21/2014 3:13:00 PM 112 mmHg 71 mmHg 81 bpm 98.8 F 101 lbs 61.5 in 18.77 kg/m2 1.41 m2 23 % 04/05/2014 1:37:00 PM 120 mmHg 70 mmHg 68 bpm 98.7 F 102 lbs 61.5 in 18.9604 kg/m 1.4169 m 26.9 % 01/18/2014 1:53:00 PM 110 mmHg 65 mmHg 76 bpm 98.4 F 102 lbs 61.5 in 18.96 kg/m2 1.42 m2 28.2 % 11/01/2013 8:47:00 AM 112 mmHg 65 mmHg 74 bpm 97.6 F 106 lbs 61.5 in 19.704 kg/m 1.4444 m 40.3 % 10/20/2013 9:50:00 AM 113 mmHg 66 mmHg 78 bpm 98.1 F 106 lbs 61.5 in 19.70 kg/m2 1.44 m2 40.6 % 06/08/2013 4:07:00 PM 113 mmHg 71 mmHg 71 bpm 97.8 F 102 lbs 61.5 in 18.9604 kg/m 1.4169 m 32.5 % 06/01/2013 3:07:00 PM 122 mmHg 63 mmHg 88 bpm 97.8 F 105 lbs 61.5 in 19.52 kg/m2 1.44 m2 40.7 % 05/15/2013 4:08:00 PM 114 mmHg 65 mmHg 74 bpm 98.4 F 105 lbs 61.5 in 19.5181 kg/m 1.4376 m 41 % 03/02/2012 9:04:00 AM 96 mmHg 63 mmHg 70 bpm 97 F 96.5 lbs 61.5 in 17.94 kg/m2 1.38 m2 27.4 % 12/17/2011 8:48:00 AM 116 mmHg 68 mmHg 83 bpm 97.8 F 103.375 lbs 61.5 in 19.216 kg/m 1.4264 m 47.8 % 09/11/2011 3:10:00 PM 114 mmHg 65 mmHg 76 bpm 99.4 F 99.25 lbs 61.5 in 18.45 kg/m2 1.40 m2 39 % 12/11/2009 11:00:00 AM 80 bpm [...] Returned 08/20/2016 2:28 PM URINE TEST Reviewed 08/20/2016 12:00 AM THER/PROPH/DIAG INJ SC/IM Reviewed 01/28/2012 12:00 AM US EXAM PELVIC [...] 2:28PM Irregular Menses Jul 28 2016 3:06PM Acute upper respiratory infection, unspecified Sep 25 2016 6:28PM Other viral agents as the cause of diseases classified elsewhere Sep 25 2016 6:28PM Acute Influenza Sep 25 2016 6:28PM Payers Insurance Name Company Name Plan Name Plan Number Policy Number Policy Group Number Start Date [facility] [id number] N/A [facility] Occupational Medicine [id number] N/A [facility] [id number] N/A History of Encounters Visit Date Visit Type Provider 09/25/2016 Office visit MATTHEW OSULLIVAN 08/20/[address] Office [address] Ash [address] MONITOR 07/28/2016 Office visit Ruth Ash [address] MONITOR 06/30/2016 Office visit Ruth Ash [address] MONITOR 05/26/2016 Office visit Ruth Ash COURT MONITOR 03/10/2016 Office visit Ruth Ash COURT MONITOR 02/20/2016 Office visit Ruth Ash COURT MONITOR 01/13/2016 Office visit Ruth Ash COURT MONITOR 11/29/2015 Office visit Ruth Ash COURT MONITOR 10/16/2015 Nurse visit Ruth Ash COURT MONITOR 09/19/2015 Office visit Calos Ontiveros COURT MONITOR 07/29/2015 Office visit Ruth Ash COURT MONITOR 05/06/2015 Nurse visit Ruth Ash COURT MONITOR 02/11/2015 Nurse visit Ruth Ash COURT MONITOR 11/22/2014 Nurse visit Ruth Ash COURT MONITOR 09/06/2014 Nurse visit Ruth Ash COURT MONITOR 06/21/2014 Nurse visit Ruth Ash COURT MONITOR 04/05/2014 Nurse visit Ruth Ash COURT MONITOR 01/18/2014 Nurse visit Ruth Ash COURT MONITOR 11/01/2013 Nurse visit Ruth Ash COURT MONITOR 10/20/2013 Office visit Ruth Ash COURT MONITOR 06/08/2013 Office visit Ruth Ash COURT MONITOR 06/01/2013 Office visit Ruth Ash COURT MONITOR 05/15/2013 Office visit Ruth Ash COURT MONITOR 03/02/2012 Office visit Louise Cage MD 12/17/2011 Office visit Louise Cage MD 09/11/2011 Office visit Loiuse Cage MD 12/11/2009 Office visit Donte Dillard DO 06/19/2009 Laboratory Amie OSULLIVAN 06/06/2009 Office visit Amie OSULLIVAN
--- OUTSIDE RECORDS SUMMARY | 2017-03-02 10:18 | XMS REPORT ---
Author Author Ruth Ash [facility] Address [address] [place], [place] [address] Care Team Providers Care Compound Specialist Name Role Phone Ruth Ash PCP Unavailable Allergies and Adverse Reactions Name Reaction Notes PENICILLINS hives Plan of Treatment Planned Activity Comments Planned Date Planned Time Plan/Goal THER/PROPH/DIAG INJ SC/IM 07/29/2015 3:40 PM CHLAMYDIA CULTURE 07/29/2015 12:00 AM N.GONORRHOEAE DNA AMP PROB 07/29/2015 12:00 AM Medications Active Name Start Date Estimated Completion Date SIG Comments Depo-Provera 150 mg/mL intramuscular suspension 07/29/2015 08/02/2015 inject 150 mg by intramuscular route every 3 months for 1 day Name Start Date Expiration Date SIG Comments azithromycin 250 mg oral tablet 12/11/2009 12/16/2009 2 stat x 1 d then 1 q d x 4 d Discontinued Name Start Date Discontinued Date SIG [...] Menorrhagia Active 12/17/2011 Contraception, Surveillance Active 05/15/2013 Mittemehdichmerz Active 06/01/2013 Pelvic Pain - Left Active [...] 4:11PM Pelvic Pain Jun 01 2013 3:10PM Ibantelschmerz Jun 01 2013 3:10PM Pelvic Pain Jun [...] 3:28PM Contraception, Surveillance Jul 29 2015 3:28PM Payers Insurance Name Company Name Plan Name Plan Number Policy Number Policy Group Number Start Date [facility] [id number] N/A [facility] [id number] N/A History of Encounters Visit Date Visit Type Provider 07/29/2015 Office visit Ruth Ash PHYSICAL SCIENCE PROFESSOR 05/06/2015 Nurse visit Ruth Ash PHYSICAL SCIENCE PROFESSOR 02/11/2015 Nurse visit Ruth Ash PHYSICAL SCIENCE PROFESSOR 11/22/2014 Nurse visit Ruth Ash PHYSICAL SCIENCE PROFESSOR 09/06/2014 Nurse visit Ruth Ash PHYSICAL SCIENCE PROFESSOR 06/21/2014 Nurse visit Ruth Ash PHYSICAL SCIENCE PROFESSOR 04/05/2014 Nurse visit Ruth Ash PHYSICAL SCIENCE PROFESSOR 01/18/2014 Nurse visit Ruth Ash PHYSICAL SCIENCE PROFESSOR 11/01/2013 Nurse visit Ruth Ash PHYSICAL SCIENCE PROFESSOR 10/20/2013 Office visit Ruth Ash PHYSICAL SCIENCE PROFESSOR 06/08/2013 Office visit Ruth Ash PHYSICAL SCIENCE PROFESSOR 06/01/2013 Office visit Ruth Ash PHYSICAL SCIENCE PROFESSOR 05/15/2013 Office visit Ruth Ash PHYSICAL SCIENCE PROFESSOR 03/02/2012 Office visit Louise Cage MD 12/17/2011 Office visit Louise Cage MD 09/11/2011 Office visit Louise Cage MD 12/11/2009 Office visit Donte Dillard DO 06/19/2009 Laboratory Amie OSULLIVAN 06/06/2009 Office visit Amie OSULLIVAN
--- OUTSIDE RECORDS SUMMARY | 2017-03-02 10:18 | XMS REPORT ---
Author Author Ruth Ash [facility] Address [address] [place], [place] [id number] Care Team Providers Care Manufacturing Plant Technician Name Role Phone Ruth Ash PCP Unavailable [...] 09/30/2016 take as directed for 5 days estradiol 1 mg oral tablet 09/29/2016 10/09/2016 take 1 tablet (1 mg) by oral route once daily for 10 days Name Start Date Expiration Date SIG [...] Menorrhagia Active 12/17/2011 Contraception, Surveillance Active 05/15/2013 Ibannichol Active 06/01/2013 Pelvic Pain - Left Active 06/08/2013 Vital Signs Date Time BP-Sys(mm[Hg] BP-Katya(mm[Hg]) HR(bpm) RR(rpm) Temp WT HT HC BMI BSA BMI Percentile O2 Sat(%) 09/29/2016 4:18:00 PM 129 mmHg 71 mmHg 79 bpm 98 F 104.375 lbs 61.5 in 19.40 kg/m2 1.43 m2 21.5 % 09/25/2016 6:23:00 PM 98 mmHg 58 mmHg 90 bpm 100.5 F 103 lbs 61.5 in 19.1463 kg/m 1.4238 m 18.3 % 96 % 08/20/2016 1:44:00 PM [...] F 106 lbs 61.5 in 19.704 kg/m 1.44 m2 32.4 % 11/22/2014 2:34:00 PM 116 mmHg 75 mmHg 76 bpm 99.7 F 105 lbs 61.5 in 19.52 kg/m2 1.4376 m 30.9 % 09/06/2014 3:34:00 PM 131 mmHg 69 mmHg 102 bpm 97.6 F 98 lbs 61.5 in 18.2169 kg/m 1.39 m2 14.8 % 06/21/2014 3:13:00 PM 112 mmHg 71 mmHg 81 bpm 98.8 F 101 lbs 61.5 in 18.77 kg/m2 1.4099 m 23 % 04/05/2014 1:37:00 PM 120 mmHg 70 mmHg 68 bpm 98.7 F 102 lbs 61.5 in 18.9604 kg/m 1.42 m2 26.9 % 01/18/2014 1:53:00 PM 110 mmHg 65 mmHg 76 bpm 98.4 F 102 lbs 61.5 in 18.96 kg/m2 1.4169 m 28.2 % 11/01/2013 8:47:00 AM 112 mmHg 65 mmHg 74 bpm 97.6 F 106 lbs 61.5 in 19.704 kg/m 1.44 m2 40.3 % 10/20/2013 9:50:00 AM 113 mmHg 66 mmHg 78 bpm 98.1 F 106 lbs 61.5 in 19.70 kg/m2 1.4444 m 40.6 % 06/08/2013 4:07:00 PM 113 mmHg 71 mmHg 71 bpm 97.8 F 102 lbs 61.5 in 18.9604 kg/m 1.42 m2 32.5 % 06/01/2013 3:07:00 PM 122 mmHg 63 mmHg 88 bpm 97.8 F 105 lbs 61.5 in 19.52 kg/m2 1.4376 m 40.7 % 05/15/2013 4:08:00 PM 114 mmHg 65 mmHg 74 bpm 98.4 F 105 lbs 61.5 in 19.5181 kg/m 1.44 m2 41 % 03/02/2012 9:04:00 AM [...] Dysmenorrhea 12/17/2011 Menorrhagia 12/17/2011 Contraception, Surveillance 05/15/2013 [facility] Pelvic Pain - Left 06/08/2013 Routine [...] 6:28PM Acute Influenza Sep 25 2016 6:28PM Abnormal Uterine Bleeding Sep 29 2016 4:22PM Metrorrhagia Sep 29 2016 4:22PM Payers Insurance Name Company Name Plan Name Plan Number Policy Number Policy Group Number Start Date BCBS [facility] [id number] N/A [facility] Occupational Medicine [id number] N[facility] [id number] N/A History of Encounters Visit Date Visit Type Provider 09/29/2016 Office visit Ruth Ash NURSING STAFF DEVELOPMENT COORDINATOR 09/25/2016 Office visit MATTHEW OSULLIVAN 08/20/2016 Office visit Ruth Ash NURSING STAFF DEVELOPMENT COORDINATOR 07/28/2016 Office visit Ruth Ash NURSING STAFF DEVELOPMENT COORDINATOR 06/30/2016 Office visit Ruth Ash NURSING STAFF DEVELOPMENT COORDINATOR 05/26/2016 Office visit Ruth Ash NURSING STAFF DEVELOPMENT COORDINATOR 03/10/2016 Office visit Ruth Ash NURSING STAFF DEVELOPMENT COORDINATOR 02/20/2016 Office visit Ruth Ash NURSING STAFF DEVELOPMENT COORDINATOR 01/13/2016 Office visit Ruth Ash NURSING STAFF DEVELOPMENT COORDINATOR 11/29/2015 Office visit Ruth Ash NURSING STAFF DEVELOPMENT COORDINATOR 10/16/2015 Nurse visit Ruth Ash NURSING STAFF DEVELOPMENT COORDINATOR 09/19/2015 Office visit Calos Ontiveros NURSING STAFF DEVELOPMENT COORDINATOR 07/29/2015 Office visit Ruth Ash NURSING STAFF DEVELOPMENT COORDINATOR 05/06/2015 Nurse visit Ruth Ash NURSING STAFF DEVELOPMENT COORDINATOR 02/11/2015 Nurse visit Ruth Ash NURSING STAFF DEVELOPMENT COORDINATOR 11/22/2014 Nurse visit Ruth Ash NURSING STAFF DEVELOPMENT COORDINATOR 09/06/2014 Nurse visit Ruth Ash NURSING STAFF DEVELOPMENT COORDINATOR 06/21/2014 Nurse visit Ruth Ash NURSING STAFF DEVELOPMENT COORDINATOR 04/05/2014 Nurse visit Ruth Ash NURSING STAFF DEVELOPMENT COORDINATOR 01/18/2014 Nurse visit Ruth Ash NURSING STAFF DEVELOPMENT COORDINATOR 11/01/2013 Nurse visit Ruth Ash NURSING STAFF DEVELOPMENT COORDINATOR 10/20/2013 Office visit Ruth Ash NURSING STAFF DEVELOPMENT COORDINATOR 06/08/2013 Office visit Ruth Ash NURSING STAFF DEVELOPMENT COORDINATOR 06/01/2013 Office visit Ruth Ash NURSING STAFF DEVELOPMENT COORDINATOR 05/15/2013 Office visit Ruth Ash NURSING STAFF DEVELOPMENT COORDINATOR 03/02/2012 Office visit Louise Cage MD 12/17/2011 Office visit Louise Cage MD 09/11/2011 Office visit Louise Cage MD 12/11/2009 Office visit Donte Dillard DO 06/19/2009 Laboratory Amie OSULLIVAN 06/06/2009 Office visit Amie OSULLIVAN
--- OUTSIDE RECORDS SUMMARY | 2017-03-02 10:19 | XMS REPORT ---
Author Author Ruth Ash [facility] Address [address] [place], [place] [id number] Care Team Providers Care Top Icer Name Role Phone Ruth Ash PCP Unavailable Allergies and Adverse Reactions Name Reaction Notes PENICILLINS hives Plan of Treatment Not available. Medications Name Start Date Expiration Date SIG Comments azithromycin 250 mg oral tablet 12/11/2009 12/16/2009 2 stat x 1 d then 1 q d x 4 d Depo-Provera 150 mg/mL intramuscular suspension 09/06/2014 09/10/2014 inject 150 mg by intramuscular [...] HC BMI BSA BMI Percentile O2 Sat(%) 05/06/2015 3:50:00 PM 108 mmHg 71 mmHg [...] Dysmenorrhea 12/17/2011 Menorrhagia 12/17/2011 Contraception, Surveillance 05/15/2013 Mittelschmerz 06/01/2013 Pelvic Pain - Left 06/08/2013 Routine [...] Contraceptive counseling (Depo-Provera) May 06 2015 3:58PM Payers Insurance Name Company Name Plan Name Plan Number Policy Number Policy Group Number Start Date [facility] [id number] N/A [facility] [id number] N/A History of Encounters Visit Date Visit Type Provider 05/06/2015 Nurse visit Ruth Ash INSULATION NOZZLEMAN 02/11/2015 Nurse visit Ruth Ash INSULATION NOZZLEMAN 11/22/2014 Nurse visit Ruth Ash INSULATION NOZZLEMAN 09/06/2014 Nurse visit Ruth Ash INSULATION NOZZLEMAN 06/21/2014 Nurse visit Ruth Ash INSULATION NOZZLEMAN 04/05/2014 Nurse visit Ruth Ash INSULATION NOZZLEMAN 01/18/2014 Nurse visit Ruth Ash INSULATION NOZZLEMAN 11/01/2013 Nurse visit Ruth Ash INSULATION NOZZLEMAN 10/20/2013 Office visit Ruth Ash INSULATION NOZZLEMAN 06/08/2013 Office visit Ruth Ash INSULATION NOZZLEMAN 06/01/2013 Office visit Ruth Ash INSULATION NOZZLEMAN 05/15/2013 Office visit Ruth Ash INSULATION NOZZLEMAN 03/02/2012 Office visit Louise Cage MD 12/17/2011 Office visit Louise Cage MD 09/11/2011 Office visit Louise Cage MD 12/11/2009 Office visit Donte Dillard DO 06/19/2009 Laboratory Amie OSULLIVAN 06/06/2009 Office visit Amie OSULLIVAN
--- OUTSIDE RECORDS SUMMARY | 2017-03-02 10:19 | XMS REPORT ---
Author Author Ruth Ash [facility] Address [address] [place], [place] [id number] Care Team Providers Care Pack Out Operator Name Role Phone Ruth Ash PCP Unavailable Allergies and Adverse Reactions Name Reaction Notes PENICILLINS hives Plan of Treatment Planned Activity Comments Planned Date Planned Time Plan/Goal URINALYSIS AUTO W/O SCOPE 09/19/2015 12:00 AM Medications Active Name Start Date Estimated Completion Date SIG Comments Minastrin 24 Fe 1 mg-20 mcg(24) /75 mg (4) oral tablet,chewable 03/10/201606/2016 chew 1 tablet by oral route once daily for 28 days Name Start Date Expiration Date SIG [...] oral route once daily for 5 days Discontinued Name Start Date Discontinued Date SIG [...] transdermal route once weekly for 3 weeks Problem List Description Status Onset Dysmenorrhea Active 12/17/2011 Menorrhagia Active 12/17/2011 Contraception, Surveillance Active 05/15/2013 Gill Active 06/01/2013 Pelvic Pain - Left Active 06/08/2013 Vital Signs Date Time BP-Sys(mm[Hg] BP-Katya(mm[Hg]) HR(bpm) RR(rpm) Temp WT HT HC BMI BSA BMI Percentile O2 Sat(%) 03/10/2016 8:57:00 AM 123 mmHg 61 mmHg [...] Returned 03/10/2016 9:58 AM URINE TEST Reviewed 01/28/2012 12:00 AM US [...] %MCV 91.0 fLMCH 30.80 pgMCHC 33.70 g/dLRDW CV 12.70 %MPV 10.60 fLPLT 214 GLUCOSE 85.0 mg/ dLSODIUM 141.0 mmol/LPOTASSIUM 3.80 mmol/LCHLORIDE 108.0 mmol/LCO2 20.0 mmol/ LBUN 14.0 mg/dLCREATININE 1.0 mg/dLSGOT/AST 20.0 IU/LSGPT/ALT 11.0 IU/LALK PHOS 72.0 IU/LTOTAL PROTEIN 7.60 g/dLALBUMIN 5.10 g/dLTOTAL BILI 0.60 mg/dLCALCIUM 10.0 mg/dLeGFR N/A mL/min/1.73mTRIGLYCERIDES 52.0 mg/dLCHOLESTEROL 129.0 mg/ dLHDL 46.0 mg/dLLDL (CALC) 73.0 mg/dLVaricella Zoster IgG 1066.0 IndexRubella Antibodies, IgG 5.33 IndexRubeola Ab, IgG 48.5 AU/mlMumps Abs, IgG 267.0 AU/ml 09/19/2015 11:47 AM COLOR YELLOW APPEARANCE CLEAR SPEC GRAV 1.015 pH 6.5 PROTEIN NEGATIVE GLUCOSE NEGATIVE mg/dLKETONE 15 BILIRUBIN NEGATIVE BLOOD SMALL NITRITE NEGATIVE LEUK SCREEN TRACE CASTS/LPF NEGATIVE /LPFCRYSTALS TRACE CA OX MUCOUS THRDS 2++ BACTERIA FEW EPITH CELLS FEW RENAL /HPFTRICHOMONAS NEGATIVE YEAST NEGATIVE 03/10/2016 9:58 AM Test, Urine negative History Of Immunizations Not available. History of [...] 4:11PM Pelvic Pain Jun 01 2013 3:10PM Marclsanna Jun 01 2013 3:10PM Pelvic Pain Jun [...] 9:15AM Contraceptive Management Mar 10 2016 9:03AM Payers Insurance Name Company Name Plan Name Plan Number Policy Number Policy Group Number Start Date BCBS B[facility]bs [facility] [id number] N/A [facility] Occupational Medicine [id number] N/A [facility] [id number] N/A History of Encounters Visit Date Visit Type Provider 03/10/2016 Office visit Ruth Ash CARTRIDGE LOADER 02/20/2016 Office visit Ruth Ash CARTRIDGE LOADER 01/13/2016 Office visit Ruth Ash CARTRIDGE LOADER 11/29/2015 Office visit Ruth Ash CARTRIDGE LOADER 10/16/2015 Nurse visit Ruth Ash CARTRIDGE LOADER 09/19/2015 Office visit Calos Ontiveros CARTRIDGE LOADER 07/29/2015 Office visit Ruth Ash CARTRIDGE LOADER 05/06/2015 Nurse visit Ruth Ash CARTRIDGE LOADER 02/11/2015 Nurse visit Ruth Ash CARTRIDGE LOADER 11/22/2014 Nurse visit Ruth Ash CARTRIDGE LOADER 09/06/2014 Nurse visit Ruth Ash CARTRIDGE LOADER 06/21/2014 Nurse visit Ruth Ash CARTRIDGE LOADER 04/05/2014 Nurse visit Ruth Ash CARTRIDGE LOADER 01/18/2014 Nurse visit Ruth Ash CARTRIDGE LOADER 11/01/2013 Nurse visit Ruth Ash CARTRIDGE LOADER 10/20/2013 Office visit Ruth Ash CARTRIDGE LOADER 06/08/2013 Office visit Ruth Ash CARTRIDGE LOADER 06/01/2013 Office visit Ruth Ash CARTRIDGE LOADER 05/15/2013 Office visit Ruth Ash CARTRIDGE LOADER 03/02/2012 Office visit Louise Cage MD 12/17/2011 Office visit Louise Cage MD 09/11/2011 Office visit Louise Cage MD 12/11/2009 Office visit Donte Dillard DO 06/19/2009 Laboratory Amie OSULLIVAN 06/06/2009 Office visit Amie OSULLIVAN
--- OUTSIDE RECORDS SUMMARY | 2017-03-02 10:20 | XMS REPORT ---
Author Author Ruth Ash [facility] Address [address] [place], [place] [address] Care Team Providers Care Fairground Operator Name Role Phone Ruth Ash PCP Unavailable Allergies and Adverse Reactions Name Reaction Notes PENICILLINS hives Plan of Treatment Planned Activity Comments Planned Date Planned Time Plan/Goal URINALYSIS AUTO W/O SCOPE 09/19/2015 12:00 AM CULTURE SCREEN ONLY 11/29/2015 12:00 AM CHYLMD TRACH DNA DIR PROBE 11/29/2015 12:00 AM Medications Active Name Start Date Estimated Completion Date SIG Comments Lo Loestrin Fe 1 mg-10 mcg (24)/10 mcg (2) oral tablet 11/29/2015 12/27/2015 take 1 tablet by oral route once daily for 28 days Name Start Date Expiration Date SIG Comments azithromycin 250 mg oral tablet 12/11/2009 12/16/2009 2 stat x 1 d then 1 q d x 4 d Depo-Provera 150 mg/mL intramuscular suspension 07/29/2015 08/02/2015 [...] Menorrhagia Active 12/17/2011 Contraception, Surveillance Active 05/15/2013 Ibanjavierantoinepiloz Active 06/01/2013 Pelvic Pain - Left Active 06/08/2013 Vital Signs Date Time BP-Sys(mm[Hg] BP-Katya(mm[Hg]) HR(bpm) RR(rpm) Temp WT HT HC BMI BSA BMI Percentile O2 Sat(%) 11/29/2015 9:11:00 AM 109 mmHg 67 mmHg [...] 10/16/2015 12:00 AM THER/PROPH/DIAG INJ SC/IM Reviewed 01/28/2012 [...] CELLS FEW RENAL /HPFTRICHOMONAS NEGATIVE YEAST NEGATIVE History Of Immunizations Not available. History of Past Illness Name Date of Onset Comments Upper Respiratory Infection Dec 11 2009 11:02AM Pharyngitis, Acute Dec 11 2009 11:02AM Dysmenorrhea 12/17/2011 Menorrhagia 12/17/2011 Contraception, Surveillance 05/15/2013 Mittelschpiloz 06/01/2013 Pelvic Pain - Left 06/08/2013 Routine [...] 2015 9:14AM Dysmenorrhea Nov 29 2015 9:14AM Payers Insurance Name Company Name Plan Name Plan Number Policy Number Policy Group Number Start Date [facility] [id number] N/A [facility] Occupational Medicine [id number] N/A [facility] [id number] N/A History of Encounters Visit Date Visit Type Provider 11/29/2015 Office visit Ruth Ash LOG HANDLER 10/16/2015 Nurse visit Ruth Ash LOG HANDLER 09/19/2015 Office visit Calos Ontiveros LOG HANDLER 07/29/2015 Office visit Ruth Ash LOG HANDLER 05/06/2015 Nurse visit Ruth Ash LOG HANDLER 02/11/2015 Nurse visit Ruth Ash LOG HANDLER 11/22/2014 Nurse visit Ruth Rodríguez Mihir LOG HANDLER 09/06/2014 Nurse visit Ruth Ash LOG HANDLER 06/21/2014 Nurse visit Ruth Rodríguez Mihir LOG HANDLER 04/05/2014 Nurse visit Ruth Rodríguez Mihir LOG HANDLER 01/18/2014 Nurse visit Ruth Rodríguez Ash LOG HANDLER 11/01/2013 Nurse visit Ruth Rodríguez Ash LOG HANDLER 10/20/2013 Office visit Ruth Rodríguez Mihir LOG HANDLER 06/08/2013 Office visit Ruth Rodríguez Mihir LOG HANDLER 06/01/2013 Office visit Ruth Rodríguez Mihir LOG HANDLER 05/15/2013 Office visit Ruth M. Mihir LOG HANDLER 03/02/2012 Office visit Louise Cage MD 12/17/2011 Office visit Louise Cage MD 09/11/2011 Office visit Louise Cage MD 12/11/2009 Office visit Donte Dillard DO 06/19/2009 Laboratory Amie OSULLIVAN 06/06/2009 Office visit Amie OSULLIVAN
--- OUTSIDE RECORDS SUMMARY | 2017-03-02 10:21 | XMS REPORT ---
Author Author Ruth Ash [facility] Address [address] [place], [place] [address] Care Team Providers Care Pharmaceutical Representative Name Role Phone Ruth Ash PCP Unavailable Allergies and Adverse Reactions Name Reaction Notes PENICILLINS hives Plan of Treatment Planned Activity Comments Planned Date Planned Time Plan/Goal URINALYSIS AUTO W/O SCOPE 09/19/2015 12:00 AM THER/PROPH/DIAG INJ SC/IM 10/16/2015 12:00 AM Medications Name Start Date Expiration [...] HC BMI BSA BMI Percentile O2 Sat(%) 10/16/2015 2:55:00 PM 106 mmHg 62 mmHg [...] 09/19/2015 12:00 AM MMR Titer Panel Returned 01/28/2012 12:00 AM US EXAM PELVIC [...] Contraceptive counseling (Depo-Provera) Oct 16 2015 3:23PM Payers Insurance Name Company Name Plan Name Plan Number Policy Number Policy Group Number Start Date [id number] N/A [facility] Occupational Medicine [id number] [facility] [id number] N/A History of Encounters Visit Date Visit Type Provider 10/16/2015 Nurse visit Ruth Ash LIBRARIAN ASSISTANT 09/19/2015 Office visit Calos Ontiveros LIBRARIAN ASSISTANT 07/29/2015 Office visit Ruth Ash LIBRARIAN ASSISTANT 05/06/2015 Nurse visit Ruth Ash LIBRARIAN ASSISTANT 02/11/2015 Nurse visit Ruth Ash LIBRARIAN ASSISTANT 11/22/2014 Nurse visit Ruth Ash LIBRARIAN ASSISTANT 09/06/2014 Nurse visit Ruth Ash LIBRARIAN ASSISTANT 06/21/2014 Nurse visit Ruth Ash LIBRARIAN ASSISTANT 04/05/2014 Nurse visit Ruth Ash LIBRARIAN ASSISTANT 01/18/2014 Nurse visit Ruth Ash LIBRARIAN ASSISTANT 11/01/2013 Nurse visit Ruth Ash LIBRARIAN ASSISTANT 10/20/2013 Office visit Ruth Ash LIBRARIAN ASSISTANT 06/08/2013 Office visit Ruth Ash LIBRARIAN ASSISTANT 06/01/2013 Office visit Ruth Ash LIBRARIAN ASSISTANT 05/15/2013 Office visit Ruth Ash LIBRARIAN ASSISTANT 03/02/2012 Office visit Louise Cage MD 12/17/2011 Office visit Louise Cage MD 09/11/2011 Office visit Louise Cage MD 12/11/2009 Office visit Donte Dillard DO 06/19/2009 Laboratory Amie OSULLIVAN 06/06/2009 Office visit Amie OSULLIVAN
--- OUTSIDE RECORDS SUMMARY | 2017-03-02 10:21 | XMS REPORT ---
Author Author Ruth Ash [facility] Address [address] [place], [place] [address] Care Team Providers Care Grab Operator Name Role Phone Ruth Ash PCP Unavailable Allergies and Adverse Reactions Name Reaction Notes PENICILLINS hives Plan of Treatment Planned Activity Comments Planned Date Planned Time Plan/Goal URINALYSIS AUTO W/O SCOPE 09/19/2015 12:00 AM Medications Active Name Start Date Estimated Completion Date SIG Comments Xulane 150-35 mcg/24 hr transdermal patch weekly 01/13/2016 04/27/2016 apply 1 patch by transdermal route once weekly for 3 weeks Name Start Date Expiration Date SIG Comments azithromycin 250 mg oral tablet 12/11/2009 12/16/2009 2 stat x 1 d then 1 q d x 4 d Lo Loestrin Fe 1 mg-10 mcg (24)/10 mcg (2) oral tablet 11/29/2015 12/27/2015 take 1 tablet by oral route once daily for 28 days Discontinued Name Start Date Discontinued Date [...] for 1 day change to Ortho Evra Problem List Description Status Onset Dysmenorrhea Active 12/17/2011 Menorrhagia Active 12/17/2011 Contraception, Surveillance Active 05/15/2013 Mittelschmerz Active 06/01/2013 Pelvic Pain - Left Active 06/08/2013 Vital Signs Date Time BP-Sys(mm[Hg] BP-Katya(mm[Hg]) HR(bpm) RR(rpm) Temp WT HT HC BMI BSA BMI Percentile O2 Sat(%) 01/13/2016 11:26:00 AM 106 mmHg 61 mmHg [...] AM CHYLMD TRACH DNA DIR PROBE Returned 01/28/2012 12:00 AM US EXAM PELVIC [...] 9:14AM Contraceptive Management Jan 13 2016 11:31AM Payers Insurance Name Company Name Plan Name Plan Number Policy Number Policy Group Number Start Date BCBS [facility] [id number] N/A [facility] Occupational Medicine [id number] [facility] [id number] N/A History of Encounters Visit Date Visit Type Provider 01/13/2016 Office visit Ruth Ash PRESSING MACHINE TENDER 11/29/2015 Office visit Ruth Ash PRESSING MACHINE TENDER 10/16/2015 Nurse visit Ruth ShellyPaula Mihir PRESSING MACHINE TENDER 09/19/2015 Office visit Calos Ontiveros PRESSING MACHINE TENDER 07/29/2015 Office visit Ruth Ash PRESSING MACHINE TENDER 05/06/2015 Nurse visit Ruth Ash PRESSING MACHINE TENDER 02/11/2015 Nurse visit Ruth BravoPaula Mihir PRESSING MACHINE TENDER 11/22/2014 Nurse visit Ruth Ash PRESSING MACHINE TENDER 09/06/2014 Nurse visit Ruth Ash PRESSING MACHINE TENDER 06/21/2014 Nurse visit Ruth Ash PRESSING MACHINE TENDER 04/05/2014 Nurse visit Ruth Ash PRESSING MACHINE TENDER 01/18/2014 Nurse visit Ruth Ash PRESSING MACHINE TENDER 11/01/2013 Nurse visit Ruth Ash PRESSING MACHINE TENDER 10/20/2013 Office visit Ruth Ash PRESSING MACHINE TENDER 06/08/2013 Office visit Ruth Ash PRESSING MACHINE TENDER 06/01/2013 Office visit Ruth Ash PRESSING MACHINE TENDER 05/15/2013 Office visit Ruth Ash PRESSING MACHINE TENDER 03/02/2012 Office visit Louise Cage MD 12/17/2011 Office visit Louise Cage MD 09/11/2011 Office visit Louise Cage MD 12/11/2009 Office visit Donte Dillard DO 06/19/2009 Laboratory Amie OSULLIVAN 06/06/2009 Office visit Amie OSULLIVAN
--- OUTSIDE RECORDS SUMMARY | 2017-03-02 10:21 | XMS REPORT | CCD ---
Author TODD Gallagher Organization Unknown Address [address] [address] [place], [place] [phone] Care Team Providers Care Barrel Rifler Button Name Role Phone HANDSHY ER, DENI BRYANT Attphys HANDSHY ER, DENI BRYANT Prisurg Vital Signs Unknown or Not Available. Allergies Allergy Code Allergy Type Reaction Status PENICILLIN 47952 Drug allergy Active Procedures Unknown or Not Available. History of Immunizations Immunization Code Date MMR 03/10/1999 MMR 03/19/2003 Hep B, adolescent or pediatric 08 1997 Hep B, adolescent or pediatric 08 01/22/1998 Hep B, adolescent or pediatric 08 05/28/1998 IPV 10 01/22/1998 IPV 10 03/25/1998 IPV 10 02/26/2000 IPV 10 03/19/2003 DTaP 20 01/22/1998 DTaP 20 03/25/1998 DTaP 20 05/28/1998 DTaP 20 02/26/2000 DTaP 20 03/19/2003 varicella 21 11/29/1998 varicella 21 04/09/2009 Hib (PRP-T) 48 01/22/1998 Hib (PRP-T) 48 03/25/1998 Hib (PRP-T) 48 05/28/1998 Hib (PRP-T) 48 02/26/2000 Tdap 115 04/09/2009 Problems Unknown or Not Available. Results Unknown or Not Available. Active Medications Unknown or Not Available. Medications Administered During Visit Unknown or Not Available. Encounters Encounter Diagnosis Diagnosis Code Start Date 1ST DEG BURN HAND NOS 89191 02/09/2015 Social History Smoking Status Code Start Date End Date Never smoker [id number] Patient Decision Aids Unknown or Not Available. Discharge Instructions You were admitted to [facility] on 02/09/2015 with a principal diagnosis of 1ST DEG BURN HAND NOS. You were discharged from [facility] on 02/09/2015. Should you have any questions prior to discharge, please contact a member of your healthcare team. If you have left the hospital and have any questions, please contact your primary care physician. Chief Complaint and Reason For Visit Chief Complaint Date of Onset BURNT HAND Function Status Unknown or Not Available. Referral/Transition of Care Unknown or Not Available.
--- OUTSIDE RECORDS SUMMARY | 2017-03-02 10:22 | XMS REPORT ---
Author Author Ruth Ash [facility] Address [address] [place], [place] [address] Care Team Providers Care Airframe Design Engineer Name Role Phone Ruth Ash PCP Unavailable [...] Dysmenorrhea 12/17/2011 Menorrhagia 12/17/2011 [facility] Pel[facility] - Left 06/08/2013 Routine [...] Contraceptive counseling (Depo-Provera) Aug 20 2016 2:28PM Payers Insurance Name Company Name Plan Name Plan Number Policy Number Policy Group Number Start Date [facility] [id number] N/A [facility] Occupational Medicine [id number] [facility] [id number] N/A History of Encounters Visit Date Visit Type Provider 08/20/2016 Office visit Ruth Ash STUDENT DEVELOPMENT ADVISOR 07/28/2016 Office visit Ruth Ash STUDENT DEVELOPMENT ADVISOR 06/30/2016 Office visit Ruth Ash STUDENT DEVELOPMENT ADVISOR 05/26/2016 Office visit Ruth Ash STUDENT DEVELOPMENT ADVISOR 03/10/2016 Office visit Ruth Ash STUDENT DEVELOPMENT ADVISOR 02/20/2016 Office visit Ruth Bravo. Mihir STUDENT DEVELOPMENT ADVISOR 01/13/2016 Office visit Ruth Rodríguez Mihir STUDENT DEVELOPMENT ADVISOR 11/29/2015 Office visit Ruth M. Mihir STUDENT DEVELOPMENT ADVISOR 10/16/2015 Nurse visit Ruth Rodríguez Mihir STUDENT DEVELOPMENT ADVISOR 09/19/2015 Office visit Calos Ontiveros STUDENT DEVELOPMENT ADVISOR 07/29/2015 Office visit Ruth Rodríguez Mihir STUDENT DEVELOPMENT ADVISOR 05/06/2015 Nurse visit Ruth Rodríguez Mihir STUDENT DEVELOPMENT ADVISOR 02/11/2015 Nurse visit Ruth Rodríguez Mihir STUDENT DEVELOPMENT ADVISOR 11/22/2014 Nurse visit Ruth Rodríguez Mihir STUDENT DEVELOPMENT ADVISOR 09/06/2014 Nurse visit Ruth Rodríguez Mihir STUDENT DEVELOPMENT ADVISOR 06/21/2014 Nurse visit Ruth M. Mihir STUDENT DEVELOPMENT ADVISOR 04/05/2014 Nurse visit Ruth Rodríguez Mihir STUDENT DEVELOPMENT ADVISOR 01/18/2014 Nurse visit Ruth Rodríguez Mihir STUDENT DEVELOPMENT ADVISOR 11/01/2013 Nurse visit Ruth Rodríguez Mihir STUDENT DEVELOPMENT ADVISOR 10/20/2013 Office visit Ruth Ash STUDENT DEVELOPMENT ADVISOR 06/08/2013 Office visit Ruth Ash STUDENT DEVELOPMENT ADVISOR 06/01/2013 Office visit Ruth MPaula Ash STUDENT DEVELOPMENT ADVISOR 05/15/2013 Office visit Ruth ShellyPaula Mihir STUDENT DEVELOPMENT ADVISOR 03/02/2012 Office visit Louise Cage MD 12/17/2011 Office visit Louise Cage MD 09/11/2011 Office visit Louise Cage MD 12/11/2009 Office visit Donte Dillard DO 06/19/2009 Laboratory Amie OSULLIVAN 06/06/2009 Office visit Amie OSULLIVAN
--- OUTSIDE RECORDS SUMMARY | 2017-03-02 10:23 | XMS REPORT ---
Author Author [facility] Organization [facility] Address [address] [place], [place] [id number] Care Team Providers Care Infantry Unit Leader Name Role Phone PCP Unavailable Allergies and [...] HC BMI BSA BMI Percentile O2 Sat(%) 11/22/2014 2:34:00 PM 116 mmHg 75 mmHg [...] Dysmenorrhea 12/17/2011 Menorrhagia 12/17/2011 Contraception, Surveillance 05[facility]15[facility] Pelvic Pain - Left 06/08/2013 Routine [...] Contraceptive counseling (Depo-Provera) Nov 22 2014 2:55PM Payers Insurance Name Company Name Plan Name Plan Number Policy Number Policy Group Number [id number] N/A [facility] [id number] N/A History of Encounters Visit Date Visit Type Provider 11/22/2014 Nurse visit Ruth Ash MEDICAL STAFF DIRECTOR 09/06/2014 Nurse visit Ruth Ash MEDICAL STAFF DIRECTOR 06/21/2014 Nurse visit Ruth Ash MEDICAL STAFF DIRECTOR 04/05/2014 Nurse visit Ruth Ash MEDICAL STAFF DIRECTOR 01/18/2014 Nurse visit Ruth Ash MEDICAL STAFF DIRECTOR 11/01/2013 Nurse visit Ruth Ash MEDICAL STAFF DIRECTOR 10/20/2013 Office visit Ruth Ash MEDICAL STAFF DIRECTOR 06/08/2013 Office visit Ruth Ash MEDICAL STAFF DIRECTOR 06/01/2013 Office visit Ruth Ash MEDICAL STAFF DIRECTOR 05/15/2013 Office visit Ruth Ash MEDICAL STAFF DIRECTOR 03/02/2012 Office visit Louise Cage MD 12/17/2011 Office visit Louise Cage MD 09/11/2011 Office visit Louise Cage MD 12/11/2009 Office visit Donte Dillard DO 06/19/2009 Laboratory Amie OSULLIVAN 06/06/2009 Office visit Amie OSULLIVAN
--- OUTSIDE RECORDS SUMMARY | 2017-03-02 10:23 | XMS REPORT ---
Author Author Ruth Ash [facility] Address [address] [place], [place] [id number] Care Team Providers Care Audio Video Repairer Name Role Phone Ruth Ash PCP Unavailable Allergies and Adverse Reactions Name Reaction Notes PENICILLINS hives Plan of Treatment Planned Activity Comments Planned Date Planned Time Plan/Goal URINALYSIS AUTO W/O SCOPE 09/19/2015 12:00 AM URINALYSIS AUTO W/SCOPE 06/24/2016 12:00 AM Medications Active Name Start Date Estimated Completion Date SIG Comments Loestrin Fe 09/11 (28-Day) 1 mg-20 mcg (21)/75 mg (7) oral tablet 05/26/2016 take 1 tablet by oral route once daily Name Start Date Expiration Date SIG Comments [...] Menorrhagia Active 12/17/2011 Contraception, Surveillance Active 05/15/2013 [facility] Active 06/01/2013 Pelvic Pain - Left Active 06/08/2013 Vital Signs Date Time BP-Sys(mm[Hg] BP-Katya(mm[Hg]) HR(bpm) RR(rpm) Temp WT HT HC BMI BSA BMI Percentile O2 Sat(%) 05/26/2016 10:14:00 AM 114 mmHg 56 mmHg [...] 2016 10:17AM Dysuria Jun 24 2016 9:39AM Payers Insurance Name Company Name Plan Name Plan Number Policy Number Policy Group Number Start Date [facility] [id number] N/A [facility] Med Occupational Medicine [id number] N/A [facility] [id number] N/A History of Encounters Visit Date Visit Type Provider 05/26/2016 Office visit Ruth Ash VESSEL LINER 03/10/2016 Office visit Ruth Ash VESSEL LINER 02/20/2016 Office visit Ruth Rodríguez Mihir VESSEL LINER 01/13/2016 Office visit Ruth Rodríguez Mihir VESSEL LINER 11/29/2015 Office visit Ruth Rodríguez Mihir VESSEL LINER 10/16/2015 Nurse visit Ruth Rodríguez Mihir VESSEL LINER 09/19/2015 Office visit Calos Ontiveros VESSEL LINER 07/29/2015 Office visit Ruth Rodríguez Mihir VESSEL LINER 05/06/2015 Nurse visit Ruth Rodríguez Mihir VESSEL LINER 02/11/2015 Nurse visit Ruth Rodríguez Mihir VESSEL LINER 11/22/2014 Nurse visit Ruth Rodríguez Mihir VESSEL LINER 09/06/2014 Nurse visit Ruth Rodríguez Mihir VESSEL LINER 06/21/2014 Nurse visit Ruth Rodríguez Mihir VESSEL LINER 04/05/2014 Nurse visit Ruth Rodríguez Mihir VESSEL LINER 01/18/2014 Nurse visit Ruth Rodríguez Mihir VESSEL LINER 11/01/2013 Nurse visit Ruth Rodríguez Mihir VESSEL LINER 10/20/2013 Office visit Ruth M. Mihir VESSEL LINER 06/08/2013 Office visit Ruth MPaula Ash VESSEL LINER 06/01/2013 Office visit Ruth Rodríguez Mihir VESSEL LINER 05/15/2013 Office visit Ruth M. Mihir VESSEL LINER 03/02/2012 Office visit Louise Cage MD 12/17/2011 Office visit Louise Cage MD 09/11/2011 Office visit Louise Cage MD 12/11/2009 Office visit Donte Dillard DO 06/19/2009 Laboratory Amie OSULLIVAN 06/06/2009 Office visit Amie OSULLIVAN
--- OUTSIDE RECORDS SUMMARY | 2017-03-02 10:24 | XMS REPORT ---
Author Author Ruth Ash [facility] Address [address] [place], [place] [phone] Care Team Providers Care Music Professor Name Role Phone Ruth Ash PCP Unavailable [...] Policy Number Policy Group Number Start Date [facility] [id number] N/A [facility] [id number] N/A History of Encounters Visit Date Visit Type Provider 07/29/2015 Office visit Ruth Ash RATE SETTER 05/06/2015 Nurse visit Ruth Ash RATE SETTER 02/11/2015 Nurse visit Ruth Ash RATE SETTER 11/22/2014 Nurse visit Ruth Ash RATE SETTER 09/06/2014 Nurse visit Ruth Ash RATE SETTER 06/21/2014 Nurse visit Ruth Ash RATE SETTER 04/05/2014 Nurse visit Ruth Ash RATE SETTER 01/18/2014 Nurse visit Ruth Ash RATE SETTER 11/01/2013 Nurse visit Ruth Ash RATE SETTER 10/20/2013 Office visit Ruth Ash RATE SETTER 06/08/2013 Office visit Ruth Ash RATE SETTER 06/01/2013 Office visit Ruth Ash RATE SETTER 05/15/2013 Office visit Ruth Ash RATE SETTER 03/02/2012 Office visit Louise Cage MD 12/17/2011 Office visit Louise Cage MD 09/11/2011 Office visit Louise Cage MD 12/11/2009 Office visit Donte Dillard DO 06/19/2009 Laboratory Amie OSULLIVAN 06/06/2009 Office visit Amie OSULLIVAN
--- OUTSIDE RECORDS SUMMARY | 2017-03-02 10:25 | XMS REPORT ---
Author Author Ruth Ash [facility] Address [address] [place], [place] [phone] Care Team Providers Care Wind Turbine Sheet Metal Worker Name Role Phone Ruth Ash PCP Unavailable Allergies and Adverse Reactions Name Reaction Notes PENICILLINS hives Plan of Treatment Planned Activity Comments Planned Date Planned Time Plan/Goal URINALYSIS AUTO W/O SCOPE 09/19/2015 12:00 AM Medications Active Name Start Date Estimated Completion Date SIG Comments clindamycin HCl 300 mg oral capsule 05/26/2016 06/05/2016 take 1 capsule ( 300 mg) by oral route every 8 hours Loestrin Fe 09/11 (28-Day) 1 mg-20 mcg [...] 10:17AM Sore throat May 26 2016 10:17AM Payers Insurance Name Company Name Plan Name Plan Number Policy Number Policy Group Number Start Date [facility] [id number] N/A [facility] Med Occupational Medicine [id number] N/A [facility] [id number] N/A History of Encounters Visit Date Visit Type Provider 05/26/2016 Office visit Ruth Ash PATIENT OFFICE REP 03/10/2016 Office visit Ruth Ash PATIENT OFFICE REP 02/20/2016 Office visit Ruth Ash PATIENT OFFICE REP 01/13/2016 Office visit Ruth Ash PATIENT OFFICE REP 11/29/2015 Office visit Ruth M. Mihir PATIENT OFFICE REP 10/16/2015 Nurse visit Ruth Rodríguez Mihir PATIENT OFFICE REP 09/19/2015 Office visit Calos Ontiveros PATIENT OFFICE REP 07/29/2015 Office visit Ruth Rodríguez Mihir PATIENT OFFICE REP 05/06/2015 Nurse visit Ruth Rodríguez Mihir PATIENT OFFICE REP 02/11/2015 Nurse visit Ruth M. Mihir PATIENT OFFICE REP 11/22/2014 Nurse visit Ruth Rodríguez Mihir PATIENT OFFICE REP 09/06/2014 Nurse visit Ruth Rodríguez Mihir PATIENT OFFICE REP 06/21/2014 Nurse visit Ruth Rodríguez Mihir PATIENT OFFICE REP 04/05/2014 Nurse visit Ruth M. Mihir PATIENT OFFICE REP 01/18/2014 Nurse visit Ruth Rodríguez Mihir PATIENT OFFICE REP 11/01/2013 Nurse visit Ruth Rodríguez Mihir PATIENT OFFICE REP 10/20/2013 Office visit Ruth ShellyPaula Ash PATIENT OFFICE REP 06/08/2013 Office visit Ruth Ash PATIENT OFFICE REP 06/01/2013 Office visit Ruth Ash PATIENT OFFICE REP 05/15/2013 Office visit Ruth Ash PATIENT OFFICE REP 03/02/2012 Office visit Louise Cage MD 12/17/2011 Office visit Louise Cage MD 09/11/2011 Office visit Louise Cage MD 12/11/2009 Office visit Donte Dillard DO 06/19/2009 Laboratory Amie OSULLIVAN 06/06/2009 Office visit Amie OSULLIVAN
--- OUTSIDE RECORDS SUMMARY | 2017-03-02 10:25 | XMS REPORT ---
Author Author Calos Ontiveros [facility] Address [address] [place], [place] [phone] Care Team Providers Care Electrician Supervisor Airplane Name Role Phone Calos Ontiveros PCP Allergies and Adverse Reactions Name Reaction Notes PENICILLINS hives Plan of Treatment Planned Activity Comments Planned Date Planned Time Plan/Goal URINALYSIS AUTO W/O SCOPE 09/19/2015 12:00 AM Medications Name Start Date Expiration [...] HC BMI BSA BMI Percentile O2 Sat(%) 09/19/2015 8:14:00 AM 108 mmHg 70 mmHg [...] Dysmenorrhea 12/17/2011 Menorrhagia 12/17/2011 [facility]race[facility] Pel[facility] Pain - Left 06/08/2013 Routine [...] testing, encounter for Sep 19 2015 8:16AM Payers Insurance Name Company Name Plan Name Plan Number Policy Number Policy Group Number Start Date [facility] [id number] N/A [facility] [id number] N/A History of Encounters Visit Date Visit Type Provider 09/19/2015 Office visit Calos Ontiveros STRIKE ON MACHINE OPERATOR 07/29/2015 Office visit Ruth Ash STRIKE ON MACHINE OPERATOR 05/06/2015 Nurse visit Ruth Ash STRIKE ON MACHINE OPERATOR 02/11/2015 Nurse visit Ruth Ash STRIKE ON MACHINE OPERATOR 11/22/2014 Nurse visit Ruth Ash STRIKE ON MACHINE OPERATOR 09/06/2014 Nurse visit Ruth Ash STRIKE ON MACHINE OPERATOR 06/21/2014 Nurse visit Ruth Ash STRIKE ON MACHINE OPERATOR 04/05/2014 Nurse visit Ruth Ash STRIKE ON MACHINE OPERATOR 01/18/2014 Nurse visit Ruth Ash STRIKE ON MACHINE OPERATOR 11/01/2013 Nurse visit Ruth Ash STRIKE ON MACHINE OPERATOR 10/20/2013 Office visit Ruth Ash STRIKE ON MACHINE OPERATOR 06/08/2013 Office visit Ruth Ash STRIKE ON MACHINE OPERATOR 06/01/2013 Office visit Ruth Ash STRIKE ON MACHINE OPERATOR 05/15/2013 Office visit Ruth Ash STRIKE ON MACHINE OPERATOR 03/02/2012 Office visit Louise Cage MD 12/17/2011 Office visit Louise Cage MD 09/11/2011 Office visit Louise Cage MD 12/11/2009 Office visit Donte Dillard DO 06/19/2009 Laboratory Amie OSULLIVAN 06/06/2009 Office visit Amie OSULLIVAN
--- OUTSIDE RECORDS SUMMARY | 2017-03-02 10:26 | XMS REPORT ---
Author Author Ruth Ash [facility] Address [address] [place], [place] [address] Care Team Providers Care Composite Layup Worker Name Role Phone Ruth Ash PCP [...] Policy Group Number Start Date [facility] [id number] N/A [facility] [id number] N/A History of Encounters Visit Date Visit Type Provider 07/29/2015 Office visit Ruth Ash TILE GRADER 05/06/2015 Nurse visit Ruth Ash TILE GRADER 02/11/2015 Nurse visit Ruth Ash TILE GRADER 11/22/2014 Nurse visit Ruth Ash TILE GRADER 09/06/2014 Nurse visit Ruth Ash TILE GRADER 06/21/2014 Nurse visit Ruth Ash TILE GRADER 04/05/2014 Nurse visit Ruth Ash TILE GRADER 01/18/2014 Nurse visit Ruth Ash TILE GRADER 11/01/2013 Nurse visit Ruth Ash TILE GRADER 10/20/2013 Office visit Ruth Ash TILE GRADER 06/08/2013 Office visit Ruth Ash TILE GRADER 06/01/2013 Office visit Ruth Ash TILE GRADER 05/15/2013 Office visit Ruth Ash TILE GRADER 03/02/2012 Office visit Louise Cage MD 12/17/2011 Office visit Louise Cage MD 09/11/2011 Office visit Louise Cage MD 12/11/2009 Office visit Donte Dillard DO 06/19/2009 Laboratory Amie OSULLIVAN 06/06/2009 Office visit Amie OSULLIVAN
--- OUTSIDE RECORDS SUMMARY | 2017-03-02 10:27 | XMS REPORT | Continuity of Care Document ---
Author Author [facility] Organization [facility] Address Unknown Phone Unavailable Allergies Medications Problems Procedures Results Encounters ACCT No. Visit Date/Time Discharge Status Pt. Type Provider Facility Loc./Unit Complaint [id number] 05/06/2015 16:42:18 05/06/2015 23: 59:59 CLS Outpatient Ruth Ash [id number] 05/06/2015 16:36:54 05/06/2015 23: 59:59 CLS Outpatient Ruth Ash [id number] 04/01/2015 22:02:15 04/01/2015 23: 59:59 CLS Outpatient Ruth Ash [id number] 11/22/2014 15:22:36 11/22/2014 23: 59:59 CLS Outpatient Ruth Ash [id number] 09/06/2014 16:28:25 09/06/2014 23: 59:59 CLS Outpatient Ruth Ash [id number] 06/21/2014 15:58:39 06/21/2014 23: 59:59 CLS Outpatient Ruth Ash [id number] 04/05/2014 14:17:55 04/05/2014 23: 59:59 CLS Outpatient Ruth Ash [id number] 01/18/2014 14:47:41 01/18/2014 23: 59:59 CLS Outpatient Ruth Ash [id number] 11/01/2013 09:42:19 11/01/2013 23: 59:59 CLS Outpatient Ruth Ash [id number] 10/20/2013 13:48:35 10/20/2013 23: 59:59 CLS Outpatient Ruth Ash [id number] 09/29/2016 17:52:22 ACT Outpatient Ruth Ash [id number] 09/25/2016 19:13:35 ACT Outpatient MATTHEW ROSALES [id number] 08/22/2016 08:31:58 ACT Outpatient Ruth Ash [id number] 07/28/2016 17:57:09 ACT Outpatient Ruth Ash [id number] 06/30/2016 09:41:41 ACT Outpatient Ruth Ash [id number] 05/26/2016 12:42:33 ACT Outpatient Ruth Ash [id number] 03/10/2016 09:45:50 ACT Outpatient Ruth Ash [id number] 02/20/2016 14:45:33 ACT Outpatient Ruth Ash [id number] 10/16/2015 15:50:00 ACT Outpatient Ruth Ash [id number] 09/19/2015 09:02:18 ACT Outpatient Calos Ontiveros [id number] 07/29/2015 16:05:50 ACT Outpatient Ruth Ash
--- OUTSIDE RECORDS SUMMARY | 2017-03-02 10:27 | XMS REPORT ---
Author Author Ruth Ash [facility] Address [address] [place], [place] [address] Care Team Providers Care Asphalt Plant Operator Name Role Phone Ruth Ash PCP Unavailable Donte Dillard V PreferredProvider Unavailable Allergies and Adverse Reactions Name Reaction Notes PENICILLINS hives Plan of Treatment Planned Activity Comments Planned Date Planned Time Plan/Goal Urinalysis Routine C&S If Indicated 09/19/2015 12:00 AM Medications Active Name Start Date Estimated Completion Date SIG Comments estradiol 2 mg oral tablet 10/19/2016 10/29/2016 take 1 tablet by oral route daily for 10 days Name Start Date [...] route every 3 months for 1 day Tamiflu 75 mg oral capsule 09/25/2016 09/30/2016 take 1 capsule (75 mg) by oral route 2 times per day for 5 days Medrol (Kulwant) 4 mg oral tablets,dose pack 09/25/2016 09/30/2016 take as directed for 5 days Discontinued Name Start Date [...] Dysmenorrhea 12/17/2011 Menorrhagia 12/17/2011 Contraception, Surveillance 05/15/2013 [facility] 06/01/2013 Pelvic Pain - Left 06/08/2013 Routine [...] Policy Number Policy Group Number Start Date [facility] [id number] N/A [facility] Occupational Medicine [id number] N/A [facility] [id number] N/A History of Encounters Visit Date Visit Type Provider 09/29/2016 Office visit Ruth Ash DIGITAL ACCOUNT EXECUTIVE 09/25/2016 Office visit MATTHEW OSULLIVAN 08/20/2016 Office visit Ruth Ash DIGITAL ACCOUNT EXECUTIVE 07/28/2016 Office visit Ruth Ash DIGITAL ACCOUNT EXECUTIVE 06/30/2016 Office visit Ruth Ash DIGITAL ACCOUNT EXECUTIVE 05/26/2016 Office visit Ruth Ash DIGITAL ACCOUNT EXECUTIVE 03/10/2016 Office visit Ruth Ash DIGITAL ACCOUNT EXECUTIVE 02/20/2016 Office visit Ruth Ash DIGITAL ACCOUNT EXECUTIVE 01/13/2016 Office visit Ruth Ash DIGITAL ACCOUNT EXECUTIVE 11/29/2015 Office visit Ruth Ash DIGITAL ACCOUNT EXECUTIVE 10/16/2015 Nurse visit Ruth Ash DIGITAL ACCOUNT EXECUTIVE 09/19/2015 Office visit Calos Ontiveros DIGITAL ACCOUNT EXECUTIVE 07/29/2015 Office visit Ruth Ash DIGITAL ACCOUNT EXECUTIVE 05/06/2015 Nurse visit Ruth Ash DIGITAL ACCOUNT EXECUTIVE 02/11/2015 Nurse visit Ruth Ash DIGITAL ACCOUNT EXECUTIVE 11/22/2014 Nurse visit Ruth Ash DIGITAL ACCOUNT EXECUTIVE 09/06/2014 Nurse visit Ruth Ash DIGITAL ACCOUNT EXECUTIVE 06/21/2014 Nurse visit Ruth Ash DIGITAL ACCOUNT EXECUTIVE 04/05/2014 Nurse visit Ruth Ash DIGITAL ACCOUNT EXECUTIVE 01/18/2014 Nurse visit Ruth Ash DIGITAL ACCOUNT EXECUTIVE 11/01/2013 Nurse visit Ruth Ash DIGITAL ACCOUNT EXECUTIVE 10/20/2013 Office visit Ruth Ash DIGITAL ACCOUNT EXECUTIVE 06/08/2013 Office visit Ruth Ash DIGITAL ACCOUNT EXECUTIVE 06/01/2013 Office visit Ruth Ash DIGITAL ACCOUNT EXECUTIVE 05/15/2013 Office visit Ruth Ash DIGITAL ACCOUNT EXECUTIVE 03/02/2012 Office visit Louise Cage MD 12/17/2011 Office visit Louise Cage MD 09/11/2011 Office visit Louise Cage MD 12/11/2009 Office visit Donte Dillard DO 06/19/2009 Laboratory Amie OSULLIVAN 06/06/2009 Office visit Amie OSULLIVAN
== END 2017-02-27 21:00 | disposition home or self-care (01) ==
LOC: ER 19:14
DX: X50.0XXA Overexertion from strenuous movement or load, initial encounter; Y93.45 Activity, cheerleading; Z98.890 Other specified postprocedural states; S93.402A Sprain of unspecified ligament of left ankle, initial encounter; S93.602A Unspecified sprain of left foot, initial encounter
CPT/HCPCS: 73610; 73630; 99283